=== PATIENT | male | born 1940 | race Hispanic/Latino ===

== ENCOUNTER 2018-01-19 16:22 | Emergency (ER) | payer OTHER, MEDICARE, BC ==
[~2018-01-19] VITALS: Ht 175.3 cm; Wt 92.5 kg
[~2018-01-19 16:22] MED LIST: ASPIRIN PO; ATORVASTATIN CA40 MG PO; FEOSOL325 MG PO; GLIMEPIRIDE2 MG PO; GLIMEPIRIDE4 MG PO; LEVAQUIN500 MG PO; METFORMIN HCL500 MG PO; SULFAMETHOXAZO1 EAC1 PO; TYLENOL WITH C1 EACH PO; Z.0.ATENOLOL25 MG PO; Z.0.LIPITOR20 MG; Z.0.PLAVIX75 MG PO; Z.1.METFORMIN HCL100 PO
--- OUTSIDE RECORDS SUMMARY | 2018-01-19 16:26 | XMS REPORT | Clinical Summary ---
Author Author [facility] Organization [facility] Address Unknown Phone Unavailable Care Team Providers [facility] Clinical Marketer Name Role Phone Asked, Given PCP Unavailable Allergies No Known Allergies Current Medications Prescription Sig. Disp. Refills Start End Date Status Date metFORMIN (GLUCOPHAGE) Take 500 mg by mouth 2 Active 500 MG tablet (two) times a day with meals. atorvastatin (LIPITOR) 40 Take 40 mg by mouth Active MG tablet nightly. atenolol (TENORMIN) 25 MG Take 25 mg by mouth Active tablet nightly. clopidogrel (PLAVIX) 75 Take 75 mg by mouth Active mg tablet daily. Last dose 07/20 per MD. aspirin (ECOTRIN) 81 MG Take 81 mg by mouth Active enteric coated tablet daily. Last dose 07/20/16 per MD glimepiride (AMARYL) 4 MG Take 4 mg by mouth Active tablet nightly. syringe with needle 3 mL 1 Syringe daily. 5 Syringe 0 04/15/20 Active 22 gauge x 1" syringe 17 nitrofurantoin Take 1 capsule (100 mg 30 capsule 0 04/12/20 (MACRODANTIN) 100 MG total) by mouth 3 (three) 17 17 capsule times a day for 10 days. cefepime (MAXIPIME) 1 Inject 1 g into the 5 g 0 04/15/20 04/20/20 gram injection shoulder, thigh, or 17 17 buttocks daily for 5 days. ciprofloxacin (CIPRO) 500 Take 1 tablet (500 mg 20 tablet 0 05/01/20 05/11/20 MG tablet total) by mouth 2 (two) 17 17 times a day for 10 days. nitrofurantoin, Take 1 capsule (100 mg 16 capsule 0 05/13/20 macrocrystal-monohydrate, total) by mouth 2 (two) 17 17 (MACROBID) 100 MG capsule times a day for 8 days. Hospital, Clinic, or Ordered Dose Route Frequency Start End Date Status Other Facility Date Administered Medication cefTRIAXone (ROCEPHIN) 1 g IM Once 04/16/20 04/16/20 Ended injection 1 gIndications: 17 17 Urinary tract infection, site unspecified cefTRIAXone (ROCEPHIN) 1 g IM Once 04/17/20 04/17/20 Ended injection 1 gIndications: 17 17 Urinary tract infection, site not specified cefTRIAXone (ROCEPHIN) 1 g IM Once 04/18/20 04/18/20 Ended injection 1 gIndications: 17 17 Urinary tract infection, site unspecified Active Problems Patient Care Coordination Note Oncology stage: Prostate : T2C, N0,Mo. Bladder:Tis, N0,M0 No known active problems Resolved Problems Problem Noted Date Resolved Date Prostate cancer 06/24/2017 06/24/2017 UTI (urinary tract infection) 05/08/2017 05/13/2017 Malignant neoplasm of overlapping sites of bladder 07/27/2016 06/24/2017 Encounters Date Type Specialty Care Team Description 01/01/2018 Office Visit Urology Josiah Hobbs Malignant neoplasm ralph Hooks MD overlapping sites of bladder (Primary Dx) 12/19/2017 Hospital Radiology Reynaldo Cabral MD Malignant neoplasm of Encounter urinary bladder, unspecified site 12/16/2017 Telephone Urology Linda Crystal MA Malignant neoplasm of urinary bladder, unspecified site (Primary Dx) 09/25/2017 Telephone Urology Josiah Hobbs MD 09/11/2017 Telephone Urology Josiah Hobbs MD 08/12/2017 Office Visit UrologJosiah Thomas MD overlapping sites of bladder (Primary Dx) 08/08/2017 Hospital Radiology Josiah Hobbs Malignant neoplasm of Encounter MD Neva urinary bladder, unspecified site 08/08/2017 Ancillary Urology Josiah Hobbs Malignant neoplasm of Orders MD Neva urinary bladder, unspecified site 08/07/2017 Telephone Urology Josiah Hobbs MD 08/05/2017 Telephone Urology Rosina Luo MA Malignant neoplasm of urinary bladder, unspecified site (Primary Dx) 05/27/2017 Clinical UrologJosiah Thomas Prostate cancer ( Primary Support NMD Genet Dx) 05/10/2017 Telephone Josiah Brunson MD 05/08/2017 Office Visit UrologJosiah Thomas Urinary tract infection MD eNva associated with cystostomy catheter, sequela (Primary Dx); Urinary tract infection associated with cystostomy catheter, subsequent encounter 05/06/2017 Telephone Josiah Brunson MD 05/01/2017 Telephone Urology Elma Butt MA 04/29/2017 Telephone UrologJosiah Thomas MD 04/23/2017 Telephone UrologJosiah Thomas Urinary tract infection, NMD Genet site unspecified (Primary Dx) 04/18/2017 Clinical Josiah Brunson Urinary tract infection, Support NMD Genet site unspecified (Primary Dx) 04/17/2017 Hospital Radiology Unknown, Phys Personal history of Encounter bladder cancer 04/17/2017 Clinical Josiah Brunson Urinary tract infection, Support MD Neva site not specified (Primary Dx) 04/17/2017 Ancillary Shruthiy Josiah Hobbs Personal history of Orders NMD Genet bladder cancer 04/16/2017 Lab Lab Josiah Hobbs MD 04/16/2017 Clinical Josiah Brunson Urinary tract infection, Support MD Neva site unspecified (Primary Dx) 04/16/2017 Telephone Josiah Brunson MD 04/15/2017 Telephone UrologJosiah Thomas MD 04/15/2017 Transcribe Access Josiah Hobbs MD 04/15/2017 Telephone Urology Elma Butt MA 04/12/2017 Telephone UrologElma Watson MA 04/08/2017 Orders Only Josiah Brunson MD 04/08/2017 Telephone Urology Rosina Luo MA 03/22/2017 Telephone UrologJosiah Thomas MD 03/21/2017 Telephone Urology Josiah Hobbs MD 03/21/2017 Telephone Urology Josiah Hobbs MD 03/19/2017 Office Visit Urology Josiah Hobbs Personal history of MD Neva bladder cancer (Primary Dx) after 01/18/2017 Immunizations Name Dates Previously Given Next Due FLUCELVAX QUAD PF (0.5mL 08/01/2016 syringe) Family History Medical History Relation Name Comments Diabetes Brother Diabetes Brother Cancer Mother aureora Diabetes Sister Relation Name Status Comments Brother Alive Brother Alive Father of heart attack Mother maya cancer of pancreas Sister Alive Social History Tobacco Use Types Packs/Day Years Used Date Former Smoker Cigarettes 1 30 Quit: 05/04/1986 Alcohol Use Drinks/Week oz/Week Comments No Sex Assigned at Date Recorded Not on file Last Filed Vital Signs Vital Sign Reading Time Taken Blood Pressure - - Pulse - - Temperature - - Respiratory Rate - - Oxygen Saturation - - Inhaled Oxygen - - Concentration Weight 92.5 kg (204 lb) 12/19/2017 3:40 PM [employer] Height 170.2 cm (5' 7") 12/19/2017 3:40 PM [employer] Body Mass Index 31.95 12/19/2017 3:40 PM [employer] Plan of Treatment Date Type Specialty Care Team Description 07/30/2018 Office Visit Urology Josiah Hobbs MD [address] [place] [address] [phone] Health Maintenance Due Date Last Done Comments ZOSTER VACCINE 2001 PNEUMOCOCCAL 2006 POLYSACCHARIDE VACCINE AGE 65 AND OVER PNEUMOCOCCAL-13 2006 INFLUENZA VACCINE 06/04/2017 08/01/2016 Implants Implanted Type Area Bander And Cellophaner Helper Machine Device Expiration Model / Identifier Date Serial / Lot Stent Uretl Divrsn [place] Rt 8.4fr Surgical N/A: N/A Freebase UROLOGICAL 06/04/2019 [id number] / 90cm Britany - [id number] Stents / Implanted: 07/27/2016 (Quantity not [id number] on file) Stent Uretl Divrsn [place] Lt 8.4fr Surgical N/A: N/A Freebase UROLOGICAL 01/18/2019 [id number] / 90cm Britany - [id number] Stents / Implanted: 07/27/2016 (Quantity not [id number] on file) Results * CT Abdomen Pelvis W Contrast (12/19/2017 4:53 PM) Only the most recent of 2 results within the time period is included. Specimen Performing Laboratory [facility] [address] [place] [address] Narrative EXAMINATION:CT ABDOMEN PELVIS W CONTRAST CLINICAL HISTORY:C67.9 Malignant neoplasm of bladderunspecified, Bladder Cancer TECHNIQUE: Multiple axial images of the abdomen and pelvis were obtained following intravenous administration of iodinated contrast. Sagittal and coronal computerized reformatted images were also obtained. Radiation dose reduction technique was utilized. COMPARISON:August 08, 2017 IMPRESSION: Abdomen: 1. Liver, spleen, pancreas, adrenals, and kidneys do not demonstrate any masses. 2.Gallbladder is absent. 3.Aorta is atherosclerotic. There is no aneurysm. 4.There is no retroperitoneal adenopathy or ascites. 5.There is an ostomy site in the right mid abdomen. There is no intestinal obstruction. 6.Previously suspected nodule in left lower lobe of the lung is not clearly identified on the current study. Pelvis: 1. There are postoperative changes related to radical cystectomy. 2.There is no pelvic mass, adenopathy, or fluid collection. [facility]-[id number] Procedure Note Interface, Radiology Results Incoming - 12/19/2017 5:06 PM [employer] EXAMINATION: CT ABDOMEN PELVIS W CONTRAST CLINICAL HISTORY: C67.9 Malignant neoplasm of bladder unspecified, Bladder Cancer TECHNIQUE: Multiple axial images of the abdomen and pelvis were obtained following intravenous administration of iodinated contrast. Sagittal and coronal computerized reformatted images were also obtained. Radiation dose reduction technique was utilized. COMPARISON: August 08, 2017 IMPRESSION: Abdomen: 1. Liver, spleen, pancreas, adrenals, and kidneys do not demonstrate any masses. 2. Gallbladder is absent. 3. Aorta is atherosclerotic. There is no aneurysm. 4. There is no retroperitoneal adenopathy or ascites. 5. There is an ostomy site in the right mid abdomen. There is no intestinal obstruction. 6. Previously suspected nodule in left lower lobe of the lung is not clearly identified on the current study. Pelvis: 1. There are postoperative changes related to radical cystectomy. 2. There is no pelvic mass, adenopathy, or fluid collection. [id number] * Estimated GFR (12/19/2017 3:53 PM) Only the most recent of 2 results within the time period is included. Component Value Ref Range GFR Non Af Amer >90 mL/min/1.73 m2 GFR Af Amer >90 mL/min/1.73 m2 Comment: Chronic kidney disease: <60 mL/min/1.73m2 Kidney failure: <15 mL/min/1.73m2 The estimated GFR is calculated from the IDMS-traceable Modification of Diet in Renal Disease Equation. The accuracy of the calculation is poor when the creatinine is normal. Calculated values >90 mL/min/1.73m2 are not reported. This equation has not been validated in children (<18 years), women, the elderly (>70 years), or ethnic groups other than Caucasians and Americans. Specimen Performing Laboratory Plasma specimen [facility] DEPARTMENT OF PATHOLOGY AND GENOMIC MEDICINE [address] [place] [id number] * Creatinine level (12/19/2017 3:53 PM) Only the most recent of 2 results within the time period is included. Component Value Ref Range Creatinine 0.7Comment: Testing performed on the ISTAT 0.7 - 1.2 mg/dL instrument by Tech [id number] Specimen Performing Laboratory Plasma specimen [facility] DEPARTMENT OF PATHOLOGY AND GENOMIC MEDICINE [address] [place] [id number] * PSA, ultrasensitive (05/27/2017 3:59 PM) Component Value Ref Range PSA, ultrasensitive <0.006 0.000 - 4.000 ng/mL Comment: Lian ECLIA methodology. According to the [employer] [employer], Serum PSA should decrease and remain at undetectable levels after radical prostatectomy. The AUA defines biochemical recurrence as an initial PSA value 0.200 ng/mL or greater followed by a subsequent confirmatory PSA value 0.200 ng/mL or greater. Values obtained with different assay methods or kits cannot be used interchangeably. Results cannot be interpreted as absolute evidence of the presence or absence of malignant disease. Specimen Performing Laboratory Blood [facility] Narrative Performed at:[id number] Banquet Bartender: Nathan Villarreal MD, Phone:[phone] * Urine culture (05/09/2017 1:20 PM) Only the most recent of 4 results within the time period is included. Component Value Ref Range Urine culture Escherichia coli Identified by an automated biochemical system. (A)Comment: 50,000-100,000 colony forming units per mL Specimen Performing Laboratory Urine [facility] Narrative Performed at:[id number] Banquet Bartender: Nathan Villarreal MD, Phone:[phone] Organism Antibiotic Method Susceptibility Escherichia coli Amoxicillin/Clavulanate S: Susceptible Escherichia coli Ampicillin R: Resistant Escherichia coli Cefepime S: Susceptible Escherichia coli Ceftriaxone S: Susceptible Escherichia coli Cefuroxime I: Intermediate Escherichia coli Cephalothin I: Intermediate Escherichia coli Ciprofloxacin R: Resistant Escherichia coli Ertapenem S: Susceptible Escherichia coli Gentamicin S: Susceptible Escherichia coli Imipenem S: Susceptible Escherichia coli Levofloxacin R: Resistant Escherichia coli Nitrofurantoin S: Susceptible Escherichia coli Piperacillin R: Resistant Escherichia coli Tetracycline R: Resistant Escherichia coli Tobramycin S: Susceptible Escherichia coli Trimethoprim/Sulfamethoxa R: Resistant zole Comment: Performed at: [address] [id number] Banquet Bartender: Nathan Villarreal MD, Phone: [phone] * FL Cystogram Minimun 3 Views (04/17/2017 10:50 AM) Specimen Performing Laboratory [facility] [address] [place] [id number] Narrative EXAMINATION:FL CYSTOGRAM MINIMUM 3 VW CLINICAL HISTORY:Z85.51 Personal history of malignant neoplasm of bladder COMPARISON:None. TECHNIQUE: Cystogram was performed. Contrast was instilled into the bladder in a retrograde manner via Adair catheter. FLUOROSCOPIC TIME:0.7 minutes, 13 images IMPRESSION: Patient is status post cystectomy. Contrast was placed into neobladder in the right lower quadrant. No contrast extravasation is present There is reflux of contrast into the ureters bilaterally. There is no hydronephrosis present. The ureters are not dilated. [facility]-[id number] Procedure Note Interface, Radiology Results Incoming - 04/17/2017 3:58 PM CDT EXAMINATION: FL CYSTOGRAM MINIMUM 3 VW CLINICAL HISTORY: Z85.51 Personal history of malignant neoplasm of bladder COMPARISON: None. TECHNIQUE: Cystogram was performed. Contrast was instilled into the bladder in a retrograde manner via Adair catheter. FLUOROSCOPIC TIME: 0.7 minutes, 13 images IMPRESSION: Patient is status post cystectomy. Contrast was placed into neobladder in the right lower quadrant. No contrast extravasation is present There is reflux of contrast into the ureters bilaterally. There is no hydronephrosis present. The ureters are not dilated. [facility]-[id number] * Urinalysis screen and microscopy, with reflex to culture (04/16/2017 10:05 AM) Component Value Ref Range Specimen site Ileal conduit Color, UA Yellow Appearance, UA Clear Specific gravity, UA 1.013 1.001 - 1.035 pH, UA 6.0 5.0 - 8.5 Protein, UA 1+ (A) Negative Glucose, UA Negative Negative Ketones, UA Negative Negative Bilirubin, UA Negative Negative Blood, UA Small (A) Negative Nitrite, UA Negative Negative Urobilinogen, UA <2.0 <2.0 Leukocyte esterase, UA Large (A) Negative WBC, UA 22 (H) 0 - 1 /HPF RBC, UA 6 (H) 0 - 1 /HPF Bacteria, UA Moderate (A) None seen Yeast, UA None seen Yeast with pseudohyphae, None seen UA Hyaline casts, UA 5 /LPF Specimen Performing Laboratory Urine [facility] DEPARTMENT OF PATHOLOGY AND GENOMIC MEDICINE [address] [place] [address] * Gram stain (04/16/2017 10:05 AM) Component Value Ref Range Gram stain isolate Moderate WBC's Few Gram positive rods Comment: Specimen Information Specimen Source: Urine Specimen Site: See UA Specimen Performing Laboratory Urine [facility] DEPARTMENT OF PATHOLOGY AND GENOMIC MEDICINE [address] [place] [address] * Urine culture screen result (04/08/2017 5:01 PM) Component Value Ref Range Urine culture Escherichia coli Greater than 100,000 colony forming units per mL (A) Urine culture Klebsiella pneumoniae Greater than 100,000 colony forming units per mL (A) Specimen Performing Laboratory [facility] Narrative Performed at:[id number] Banquet Bartender: Nathan Villarreal MD, Phone:[phone] Organism Antibiotic Method Susceptibility Escherichia coli Amoxicillin/Clavulanate S: Susceptible Escherichia coli Ampicillin R: Resistant Escherichia coli Cefepime S: Susceptible Escherichia coli Ceftriaxone S: Susceptible Escherichia coli Cefuroxime R: Resistant Escherichia coli Cephalothin R: Resistant Escherichia coli Ciprofloxacin R: Resistant Escherichia coli Ertapenem S: Susceptible Escherichia coli Gentamicin S: Susceptible Escherichia coli Imipenem S: Susceptible Escherichia coli Levofloxacin R: Resistant Escherichia coli Nitrofurantoin I: Intermediate Escherichia coli Piperacillin R: Resistant Escherichia coli Tetracycline R: Resistant Escherichia coli Tobramycin S: Susceptible Escherichia coli Trimethoprim/Sulfamethoxa R: Resistant zole Comment: Performed at: [facility] [id number] Banquet Bartender: Nathan Villarreal MD, Phone: [phone] Klebsiella pneumoniae Amoxicillin/Clavulanate I: Intermediate Klebsiella pneumoniae Ampicillin R: Resistant Klebsiella pneumoniae Cefazolin R: Resistant Klebsiella pneumoniae Cefepime S: Susceptible Klebsiella pneumoniae Ceftriaxone R: Resistant Klebsiella pneumoniae Cefuroxime R: Resistant Klebsiella pneumoniae Cephalothin R: Resistant Klebsiella pneumoniae Ciprofloxacin I: Intermediate Klebsiella pneumoniae Ertapenem S: Susceptible Klebsiella pneumoniae Gentamicin R: Resistant Klebsiella pneumoniae Imipenem S: Susceptible Klebsiella pneumoniae Levofloxacin S: Susceptible Klebsiella pneumoniae Nitrofurantoin I: Intermediate Klebsiella pneumoniae Piperacillin R: Resistant Klebsiella pneumoniae Tetracycline R: Resistant Klebsiella pneumoniae Tobramycin I: Intermediate Klebsiella pneumoniae Trimethoprim/Sulfamethoxa R: Resistant zole Comment: Performed at: [facility] [id number] Banquet Bartender: Nathan Villarreal MD, Phone: [phone] * Urine Cytology (04/04/2017 3:18 PM) Component Value Ref Range Source CommentComment: URINE Diagnosis Comment Comment: Urine, voided, cytology: - Nondiagnostic specimen. - Insufficient cellularity for evaluation. Signed out by: CommentComment: Nathan Villarreal MD, Pathologist Performed by: CommentComment: Ashleigh Lane, Bookkeeper (ASCP) Gross description: Comment Comment: Received is 50 ml of yellow fluid from which one ThinPrep is made. /maria esther Microscopic description: CommentComment: Microscopic examination is performed. Specimen Performing Laboratory Urine [facility] Narrative Performed at: [id number] Banquet Bartender: Nathan Villarreal MD, Phone:[phone] Specimen Comment: No. of containers..01 Other (Miscellaneous) after 01/18/2017 Insurance Payer Benefit Subscriber ID Type Phone Address Plan / Group MEDICARE MEDICARE xxxxxxxxxx Medicare [place] PART A [place] B BCBS BCBS xxxxxxxxxxxx Indemnity PAR/TRAD PLAN Work: [address] [facility] [phone] Home:
[2018-01-19] MEDS ORDERED: ROBAXIN-750750 MG PO (17:37)
[2018-01-19] MEDS ORDERED: VALIUM5 MG PO (17:37)
[2018-01-19 18:57] VITALS: BP 136/68
== END 2018-01-19 17:45 | disposition home or self-care (01) ==
LOC: FSED 16:22
DX: M25.511 Pain in right shoulder (principal); M54.6 Pain in thoracic spine; V43.62XA Car passenger injured in collision with other type car in traffic accident, initial encounter; Y92.488 Other paved roadways as the place of occurrence of the external cause; I10 Essential (primary) hypertension; E11.9 Type 2 diabetes mellitus without complications; E78.5 Hyperlipidemia, unspecified
CPT/HCPCS: 99282

== ENCOUNTER 2019-05-14 18:19 | Observation (INO) | payer MEDICARE, BC ==
[~2019-05-14] VITALS: Ht 175.3 cm; Wt 95.8 kg
[~2019-05-14 18:19] MED LIST changes: +ROBAXIN-750750 MG PO; +VALIUM5 MG PO
--- OUTSIDE RECORDS SUMMARY | 2019-05-14 18:24 | XMS REPORT | Clinical Summary ---
Author Author [facility] Address Unknown Phone Unavailable Care Team Providers Care Tire Adjuster Name Role Phone Asked, None Given PCP Unavailable Allergies No Known Allergies Medications End Date Status Medication Sig Dispensed Refills Start Date Active metFORMIN (GLUCOPHAGE) Take 500 mg 0 500 MG tablet by mouth 2 (two) times a day with meals. Active atorvastatin (LIPITOR) 40 Take 40 mg by 0 MG tablet mouth nightly. Active atenolol (TENORMIN) 25 MG Take 25 mg by 0 tablet mouth nightly. Active clopidogrel (PLAVIX) 75 Take 75 mg by 0 mg tablet mouth daily. Last dose 07/20 per MD. Active aspirin (ECOTRIN) 81 MG Take 81 mg by 0 enteric coated tablet mouth daily. Last dose 07/20/16 per MD Active glimepiride (AMARYL) 4 MG Take 4 mg by 0 tablet mouth nightly. Active syringe with needle 3 mL 1 Syringe 5 Syringe 0 22 gauge x 1" syringe daily. 7 Active Problems Patient Care Coordination Note Oncology stage: Prostate : T2C, N0,Mo. Bladder:Tis, N0,M0 No known active problems Encounters Care Team Description Date Type Specialty Rosina Luo MA 03/18/2019 Telephone Urology Randi Kowalski MA 03/18/2019 Telephone Urology Josiah Hobbs MD Urinary tract infection without hematuria, site unspecified 03/11/2019 Hospital Radiology Encounter Josiah Hobbs MD Urinary tract infection associated with cystostomy catheter, sequela; Urinary tract infection without hematuria, site unspecified 03/11/2019 Hospital Radiology Encounter Josiah Hobbs MD Urinary tract infection associated with cystostomy catheter, sequela (Primary Dx); Urinary tract infection without hematuria, site unspecified 02/26/2019 Office Visit Urology Rosina Luo MA Cough (Primary Dx) 02/26/2019 Orders Only Urology Rosina Luo MA Urinary tract infection without hematuria, site unspecified (Primary Dx) 02/26/2019 Orders Only Urology Josiah Hobbs MD 02/09/2019 Telephone Urology Randi Kowalski MA 12/01/2018 Telephone Urology Josiah Hobbs MD Malignant neoplasm of overlapping sites of bladder (HCC) (Primary Dx) 11/28/2018 Office Visit Urology Josiah Hobbs MD 11/26/2018 Telephone Urology Rosina Luo MA 10/10/2018 Telephone Urology Venita Hope MA 08/26/2018 Telephone Urology Josiah Hobbs MD Bladder carcinoma (HCC) (Primary Dx) 08/20/2018 Office Visit Urology Josiah Hobbs MD 08/14/2018 Telephone Urology Josiah Hobbs MD Malignant neoplasm of overlapping sites of bladder (HCC) 08/04/2018 Hospital Radiology Encounter Josiah Hobbs MD Malignant neoplasm of overlapping sites of bladder (HCC) 08/04/2018 Hospital Radiology Encounter Josiah Hobbs MD Malignant neoplasm of overlapping sites of bladder (Primary Dx) 08/01/2018 Office Visit Urology Josiah Hobbs MD 07/22/2018 Telephone Urology Josiah Hobbs MD 05/15/2018 Telephone Urology after 05/13/2018 Immunizations Name Dates Previously Given Next Due FLUCELVAX QUAD PF (0.5mL 08/01/2016 syringe) Family History Medical History Relation Name Comments Diabetes Brother Diabetes Brother Cancer Mother aureora Diabetes Sister Relation Name Status Comments Brother Alive Brother Alive Father of heart attack Mother aureora cancer of pancreas Sister Alive Social History Date Tobacco Use Types Packs/Day Years Used Quit: 05/04/1986 Former Smoker Cigarettes 1 30 Smokeless Tobacco: Former User Alcohol Use Drinks/Week oz/Week Comments No Sex Assigned at Date Recorded Not on file Industry Job Start Date Occupation Not on file Not on file Not on file Travel End Travel History Travel Start No recent travel history available. Last Filed Vital Signs Time Taken Vital Sign Reading 02/26/2019 12:18 PM CDT Blood Pressure 127/55 02/26/2019 12:18 PM CDT Pulse 63 - Temperature - - Respiratory Rate - - Oxygen Saturation - - Inhaled Oxygen - Concentration 08/04/2018 1:44 PM CDT Weight 92.5 kg (204 lb) 08/04/2018 1:44 PM CDT Height 170.2 cm (5' 7") 08/04/2018 1:44 PM CDT Body Mass Index 31.95 Plan of Treatment Health Maintenance Due Date Last Done Comments SHINGLES VACCINES (#1) 1991 65+ PNEUMOCOCCAL VACCINE 2006 (1 of 2 - PCV13) INFLUENZA VACCINE 06/04/2019 08/01/2016 Implants Device Identifier Shelf Expiration Date Model / Serial / Lot Implanted Type Area Manufactur er 06/04/2019 [id number] / / [id number] Stent Uretl Divrsn Water Purifier Operator Rt 8.4fr Surgical N/A: N/A COOK 90cm Britany - [id number] Stents UROLOGICAL Implanted: 07/27/2016 (Quantity not on file) 01/18/2019 [id number] / / [id number] Stent [employer]retl Divrsn Water Purifier Operator Lt 8.4fr Surgical N/A: N/A COOK 90cm Britany - [id number] Stents UROLOGICAL Implanted: 07/27/2016 (Quantity not on file) Procedures Comments Procedure Name Priority Date/Time Associated Diagnosis CT RENAL STONE PROTOCOL Routine 03/11/2019 Urinary tract infection 1:59 PM CDT without hematuria, site unspecified XR CHEST 2 VW Routine 03/11/2019 Urinary tract infection 1:28 PM CDT associated with cystostomy catheter, sequela Urinary tract infection without hematuria, site unspecified POC URINALYSIS DIPSTICK Routine 02/26/2019 Urinary tract infection 12:27 PM CDT associated with cystostomy catheter, sequela URINE CULTURE Routine 02/26/2019 Urinary tract infection 3:16 AM CDT associated with cystostomy catheter, sequela CT ABDOMEN PELVIS W WO Routine 08/04/2018 Malignant neoplasm of CONTRAST 3:33 PM CDT overlapping sites of bladder (HCC) XR CHEST 2 VW Routine 08/04/2018 Malignant neoplasm of 1:35 PM CDT overlapping sites of bladder (HCC) PROSTATE SPECIFIC ANTIGEN Routine 08/01/2018 Malignant neoplasm of 1:56 PM CDT overlapping sites of bladder COMPREHENSIVE METABOLIC Routine 08/01/2018 Malignant neoplasm of PANEL 1:56 PM CDT overlapping sites of bladder CBC WITH PLATELET AND Routine 08/01/2018 Malignant neoplasm of DIFFERENTIAL 1:56 PM CDT overlapping sites of bladder POC URINALYSIS DIPSTICK Routine 08/01/2018 Malignant neoplasm of 11:37 AM CDT overlapping sites of bladder after 05/13/2018 Results * CT Renal Stone Protocol (03/11/2019 1:59 PM CDT) Specimen Narrative Performed At EXAMINATION:CT RENAL STONE PROTOCOL [facility] CLINICAL HISTORY:N39.0 Urinary tract infectionsite not specified, UTI COMPARISON:08/04/2018 TECHNIQUE:CT of the abdomen and pelvis without intravenous contrast. Absence of intravenous contrast decreases sensitivity for detection of focal lesions and vascular pathology. CT imaging was performed with iterative reconstruction techniques and/or automated exposure control to reduce radiation dose. FINDINGS: LOWER THORAX:Mild bibasilar atelectasis. Mitral annular calcifications. Scattered coronary calcifications. Mild cardiac enlargement HEPATOBILIARY:Cholecystectomy. There are some dropped clips and probably stones along the posterior right lobe the liver. No focal hepatic lesion or biliary dilation. SPLEEN:No splenomegaly. PANCREAS:No focal masses or ductal dilation. ADRENALS:No adrenal nodules. KIDNEYS:Punctate nonobstructing calyceal stone lower pole right kidney. Unenhanced kidneys are otherwise unremarkable. There is no hydronephrosis. GI TRACT:Absence of oral contrast decreases sensitivity for detection of bowel pathology. Prominent fecal material is present in portions of the colon. There are scattered colonic diverticula. There is some postsurgical changes in the small bowel in the right lower quadrant. No obstruction. Appendix is presumed absent. PERITONEUM/RETROPERITONEUM:Advanced atherosclerotic disease in the abdominal aorta which is nonaneurysmal. There is no abdominal adenopathy, ascites or free air. PELVIC ORGANS/BLADDER:Patient is status post cystoprostatectomy. There is an ileal conduit and urostomy in the right lower quadrant which have a normal unenhanced appearance. There is no pelvic sidewall adenopathy. There are surgical clips along each side wall. There is no pelvic fluid. BONES AND SOFT TISSUES:Degenerative changes in the hips and spine. IMPRESSION: 1.Patient is status post cystoprostatectomy with right lower quadrant ileocolic conduit and urostomy. These have a normal unenhanced appearance. 2.Punctate calyceal stone lower pole right kidney. No hydronephrosis. 3.Additional findings as above. [id number] Procedure Note Hm Interface, Radiology Results Incoming - 03/11/2019 2:53 PM CDT EXAMINATION: CT RENAL STONE PROTOCOL CLINICAL HISTORY: N39.0 Urinary tract infection site not specified, UTI COMPARISON: 08/04/2018 TECHNIQUE: CT of the abdomen and pelvis without intravenous contrast. Absence of intravenous contrast decreases sensitivity for detection of focal lesions and vascular pathology. CT imaging was performed with iterative reconstruction techniques and/or automated exposure control to reduce radiation dose. FINDINGS: LOWER THORAX: Mild bibasilar atelectasis. Mitral annular calcifications. Scattered coronary calcifications. Mild cardiac enlargement HEPATOBILIARY: Cholecystectomy. There are some dropped clips and probably stones along the posterior right lobe the liver. No focal hepatic lesion or biliary dilation. SPLEEN: No splenomegaly. PANCREAS: No focal masses or ductal dilation. ADRENALS: No adrenal nodules. KIDNEYS: Punctate nonobstructing calyceal stone lower pole right kidney. Unenhanced kidneys are otherwise unremarkable. There is no hydronephrosis. GI TRACT: Absence of oral contrast decreases sensitivity for detection of bowel pathology. Prominent fecal material is present in portions of the colon. There are scattered colonic diverticula. There is some postsurgical changes in the small bowel in the right lower quadrant. No obstruction. Appendix is presumed absent. PERITONEUM/RETROPERITONEUM: Advanced atherosclerotic disease in the abdominal aorta which is nonaneurysmal. There is no abdominal adenopathy, ascites or free air. PELVIC ORGANS/BLADDER: Patient is status post cystoprostatectomy. There is an ileal conduit and urostomy in the right lower quadrant which have a normal unenhanced appearance. There is no pelvic sidewall adenopathy. There are surgical clips along each side wall. There is no pelvic fluid. BONES AND SOFT TISSUES: Degenerative changes in the hips and spine. IMPRESSION: 1. Patient is status post cystoprostatectomy with right lower quadrant ileocolic conduit and urostomy. These have a normal unenhanced appearance. 2. Punctate calyceal stone lower pole right kidney. No hydronephrosis. 3. Additional findings as above. [id number] Performing Organization Address [facility] Phone Number [facility] [address] [place] [address] * XR Chest 2 Vw (03/11/2019 1:28 PM CDT) Only the most recent of 2 results within the time period is included. Specimen Narrative Performed At EXAMINATION:XR CHEST 2 VW [facility] CLINICAL HISTORY:T83.510S Infection and inflammatory reaction due to cystostomy cathetersequela, N39.0 Urinary tract infectionsite not specified, bladder Ca COMPARISON:Chest x-ray 08/04/2018 IMPRESSION: Frontal and lateral views reveal a stable cardiomediastinal silhouette. Lungs are clear. Pleural margins are sharp. The remainder of the examination is unchanged. [id number] Procedure Note Hm Interface, Radiology Results Incoming - 03/11/2019 1:48 PM CDT EXAMINATION: XR CHEST 2 VW CLINICAL HISTORY: T83.510S Infection and inflammatory reaction due to cystostomy catheter sequela, N39.0 Urinary tract infection site not specified, bladder Ca COMPARISON: Chest x-ray 08/04/2018 IMPRESSION: Frontal and lateral views reveal a stable cardiomediastinal silhouette. Lungs are clear. Pleural margins are sharp. The remainder of the examination is unchanged. [id number] Performing Organization Address [facility] Phone Number [facility] [address] [place] [address] * POC urinalysis dipstick (02/26/2019 12:27 PM CDT) Only the most recent of 2 results within the time period is included. Color urine, Yellow POC Clarity urine, Cloudy POC Glucose urine, Negative Negative POC Bilirubin Negative Negative urine, POC Ketones urine, Negative Negative POC Specific 1.020 1.005 - 1.030 gravity urine, POC Blood urine, Moderate (A) Negative POC pH urine, POC 6.5 5.0, 5.5, 6.0, 6.5, 7.0, 7.5, 8.0, 8.5 Protein urine, Negative Negative POC Urobilinogen <2.0 <2.0 urine, POC Nitrite urine, Positive (A) Negative POC Leukocyte Trace (A) Negative esterase urine, POC Specimen Urine * Urine culture (02/26/2019 3:16 AM CDT) Urine culture Greater than 2 organisms [facility] recovered, none predominant. Please submit another sample if clinically indicated. Greater than 100,000 colony forming units per mL Specimen Urine Narrative Performed At Performed at: - [facility] [address] [place], [id number] [employer] Plant Manager: Nathan Villarreal MD, Phone:[phone] Performing Organization Address City/State/Zipcode Phone Number [facility] * CT Abdomen Pelvis W Wo Contrast (08/04/2018 3:33 PM CDT) Specimen Narrative Performed At EXAMINATION:CT ABDOMEN PELVIS W WO CONTRAST [facility] CLINICAL HISTORY:C67.8 Malignant neoplasm of overlapping sites of bladder, F U bladder cancer, Bladder cancer F U TECHNIQUE:Noncontrast images of the abdomen were obtained. Subsequently, axial images of the abdomen and pelvis were obtained following intravenous administration of iodinated contrast. Sagittal and coronal computerized reformatted images were also obtained. All CT images were acquired using radiation dose lowering technique with automated exposure control and / or iterative reconstruction. COMPARISON:CT abdomen and pelvis, 12/19/2017 IMPRESSION: ABDOMEN: 1. Precontrast images demonstrate no calculi within either kidney or visualized portions of either ureter. 2.Mosaic attenuation pattern in the lung bases likely mild interstitial edema. Coexistent cardiomegaly. Coronary artery calcifications. 3.Mild diffuse fatty liver.. No focal hepatic lesion identified. 4.Bile ducts, pancreas, spleen, adrenal glands demonstrate nothing unusual. 5.Retroaortic left renal vein anatomic variant. Atherosclerotic plaque in the abdominal aorta without AAA. Kidneys unremarkable. PELVIS: 1. No free fluid or lymphadenopathy identified within the abdomen or pelvis. Pelvic lymph node dissection clips. 2.Status post cystoprostatectomy with a right lower quadrant ileal urinary conduit. No hydronephrosis on either side. 3.Bowel loop show no evidence of obstruction or acute inflammation. Parastomal hernia containing fat only. 4.DJD in the spine and hips. Visualized bones show no suspicious lesion. SUMMARY: No suspicious finding identified. No evidence of residual or recurrent disease. [facility]-[id number] Procedure Note Interface, Radiology Results Incoming - 08/04/2018 4:01 PM CDT EXAMINATION: CT ABDOMEN PELVIS W WO CONTRAST CLINICAL HISTORY: C67.8 Malignant neoplasm of overlapping sites of bladder, F U bladder cancer, Bladder cancer F U TECHNIQUE: Noncontrast images of the abdomen were obtained. Subsequently, axial images of the abdomen and pelvis were obtained following intravenous administration of iodinated contrast. Sagittal and coronal computerized reformatted images were also obtained. All CT images were acquired using radiation dose lowering technique with automated exposure control and / or iterative reconstruction. COMPARISON: CT abdomen and pelvis, 12/19/2017 IMPRESSION: ABDOMEN: 1. Precontrast images demonstrate no calculi within either kidney or visualized portions of either ureter. 2. Mosaic attenuation pattern in the lung bases likely mild interstitial edema. Coexistent cardiomegaly. Coronary artery calcifications. 3. Mild diffuse fatty liver.. No focal hepatic lesion identified. 4. Bile ducts, pancreas, spleen, adrenal glands demonstrate nothing unusual. 5. Retroaortic left renal vein anatomic variant. Atherosclerotic plaque in the abdominal aorta without AAA. Kidneys unremarkable. PELVIS: 1. No free fluid or lymphadenopathy identified within the abdomen or pelvis. Pelvic lymph node dissection clips. 2. Status post cystoprostatectomy with a right lower quadrant ileal urinary conduit. No hydronephrosis on either side. 3. Bowel loop show no evidence of obstruction or acute inflammation. Parastomal hernia containing fat only. 4. DJD in the spine and hips. Visualized bones show no suspicious lesion. SUMMARY: No suspicious finding identified. No evidence of residual or recurrent disease. [facility]-[id number] Performing Organization Address City/State/Zipcode Phone Number [facility] [address] [place] [address] * CBC with platelet and differential (08/01/2018 1:56 PM CDT) WBC 6.3 3.4 - 10.8 x10E3/uL [facility] RBC 4.20 4.14 - 5.80 x10E6/uL [facility] HGB 12.1 (L) 13.0 - 17.7 g/dL [facility] HCT 37.0 (L) 37.5 - 51.0 % [facility] MCV 88 79 - 97 fL [facility] MCH 28.8 26.6 - 33.0 pg [facility] MCHC 32.7 31.5 - 35.7 g/dL [facility] RDW 14.7 12.3 - 15.4 % [facility] Platelet count 210 150 - 379 x10E3/uL [facility] Neutrophils 69 Not Estab. % [facility] Lymphocytes 18 Not Estab. % [facility] Monocytes 9 Not Estab. % [facility] Eosinophils 3 Not Estab. % [facility] Basophils 1 Not Estab. % [facility] Neutrophils, 4.4 1.4 - 7.0 x10E3/uL [facility] absolute Lymphocytes, 1.1 0.7 - 3.1 x10E3/uL [facility] absolute Monocytes, 0.6 0.1 - 0.9 x10E3/uL [facility] absolute Eosinophils, 0.2 0.0 - 0.4 x10E3/uL [facility] absolute Basophils, 0.0 0.0 - 0.2 x10E3/uL [facility] absolute Immature 0 Not Estab. % [facility] granulocytes Immature grans 0.0 0.0 - 0.1 x10E3/uL [facility] (abs) Specimen Blood Narrative Performed At Performed at:[address] [place], [place] [id number] [employer] Manager: Nathan Villarreal MD, Phone:[phone] Performing Organization Address [facility] Phone Number [facility] * Prostate specific antigen (08/01/2018 1:56 PM CDT) PSA <0.1 0.0 - 4.0 ng/mL [facility] Comment: Lian ECLIA methodology. According to the [place] [employer], Serum PSA should decrease and remain at undetectable levels after radical prostatectomy. The AUA defines biochemical recurrence as an initial PSA value 0.2 ng/mL or greater followed by a subsequent confirmatory PSA value 0.2 ng/mL or greater. Values obtained with different assay methods or kits cannot be used interchangeably. Results cannot be interpreted as absolute evidence of the presence or absence of malignant disease. Specimen Blood Narrative Performed At Performed at:[address] [place] [address] [id number] [employer] Manager: Nathan Villarreal MD, Phone:[phone] Performing Organization Address [facility] Phone Number [facility] * Comprehensive metabolic panel (08/01/2018 1:56 PM CDT) Glucose 122 (H) 65 - 99 mg/dL [facility] BUN, whole 21 8 - 27 mg/dL [facility] blood Creatinine 0.80 0.76 - 1.27 mg/dL [facility] EGFR Non-Afr. 87 >59 mL/min/1.73 [facility] [place] EGFR 100 >59 mL/min/1.73 [facility] [place] BUN/creatinine 26 (H) 10 - 24 [facility] ratio Sodium 142 134 - 144 mmol/L [facility] Potassium 4.7 3.5 - 5.2 mmol/L [facility] Chloride 99 96 - 106 mmol/L [facility] CO2 23 20 - 29 mmol/L [facility] Calcium 9.3 8.6 - 10.2 mg/dL [facility] Protein 7.2 6.0 - 8.5 g/dL [facility] Albumin, S 4.7 3.5 - 4.8 g/dL [facility] Globulin, total 2.5 1.5 - 4.5 g/dL [facility] Albumin/globuli 1.9 1.2 - 2.2 [facility] n ratio Total bilirubin 0.6 0.0 - 1.2 mg/dL [facility] Alkaline 71 39 - 117 IU/L [facility] phosphatase AST 17 0 - 40 IU/L [facility] ALT 20 0 - 44 IU/L [facility] Specimen Blood Narrative Performed At Performed at:01 - [facility] [place] [facility] [address] [place], [id number] [employer] Manager: Nathan Villarreal MD, Phone:[phone] Performing Organization Address City/State/Zipcode Phone Number [facility] after 05/13/2018 Insurance Type Payer Benefit Subscriber ID Effective Phone Address Plan / Dates Group Medicare MEDICARE MEDICARE xxxxxxxxxxx 2006- STOCK, PART A AND Present [place] Indemnity BCBS BCBS xxxxxxxxxxxx 2015-P PAR/TRAD resent PLAN Advance Directives Patient has advance care planning documents on file. For more information, estevan e contact: Vic Gonzalez [address] [place] [address]
--- OUTSIDE RECORDS SUMMARY | 2019-05-14 18:25 | XMS REPORT ---
Author [facility] Address Unknown Phone Unavailable Care Team Providers Care Time Study Statistician Name Role Phone Unavailable Unavailable Payers Payer Name Policy Type Policy Number Effective Date Expiration Date Problems This patient has no known problems. Allergies, Adverse Reactions, Alerts Allergy Name Allergy Type Status Severity Reaction(s) Onset Date Inactive Date Treating Clinician Comments No Known Allergies DA Active U 2013-06-06 00:00:00 Medications This patient has no known medications. Results Test Description Test Time Test Comments Text Results Atomic Results Result Comments - XR FINGER(S) 2+V LT 2019-03-23 17:15:00 [place]: O St: REG Name: YIFAN LAI [facility] : 1940 Age/S: 78/M [address] [facility] Unit #: [id number] Loc: [place] [address] Phys: Graciela Brito MD Acct: [id number] Dis Date: Status: REG CLI PHONE #: [phone] Exam Date: 03/23/2019 3777 FAX #: [phone] Reason: Z91.81 EXAMS: CPT CODE: [id number] XR FINGER(S) 2+[place] [address] TECHNIQUE - XR FINGER(S) 2+V LT . COMPARISON: None provided. HISTORY: 78 years Male Z91.81 FINDINGS: Bones: No acute fracture. No dislocation. No suspicious bone lesion. Joints: Moderate osteophytes. Moderate joint space reduction. No subchondral bone lesions. No bony erosions. Soft tissues: No significant abnormalities. Other: None. IMPRESSION: No acute fracture. Moderate osteoarthritic changes. at 2493 Reported and signed by: Corwin Hawk M.D. CC: Technologist: RT Pao(Zak) Trnscrd Date/Time/By: 03/23/2019 ([id number]) : By: Juan Orig Print D/T: S: 03/23/2019 (3392) PAGE 1 Signed Report
--- NOTE | 2019-05-14 19:16 | Diagnostic Imaging Report ---
EXAMINATION: Chest PA and lateral views INDICATION: Pain. COMPARISON: None FINDINGS: TUBES and LINES: None. LUNGS: Mild perihilar, peribronchial thickening. Bibasilar subsegmental atelectasis. There is no evidence of pneumonia or pulmonary edema. PLEURA: No pleural effusion or pneumothorax. HEART AND MEDIASTINUM: The cardiomediastinal silhouette is unremarkable. BONES AND SOFT TISSUES: There are degenerative changes in the thoracic spine. Orthopedic screw projected on the left humeral head. Soft tissues are unremarkable. UPPER ABDOMEN: No free air under the diaphragm. IMPRESSION: No acute thoracic abnormality. Signed by: Dr. Nico Phillips M.D. on 05/14/2019 7:12 PM
--- NOTE | 2019-05-14 19:24 | NUR ---
Report to ZEESHAN Fischer
--- NOTE | 2019-05-14 20:19 | Diagnostic Imaging Report ---
Examination: CT head without contrast Clinical Indication: Left arm and face numbness. . Technique: Transaxial noncontrast images from the skull base through the vertex were obtained. Sagittal and coronal reformatted images were done. Dose modulation, iterative reconstruction, and/or weight based adjustment of the mA/kV was utilized to reduce the radiation dose to as low as reasonably achievable. Comparison: None. Findings: Scalp: No abnormalities. Bones: Intact. No fractures. No blastic or lytic lesions. Brain sulci: Mild volume loss for patient's age. Ventricles: No hydrocephalus. Extra-axial space: No abnormalities. Parenchyma: There are confluent areas of low-attenuation within subcortical and periventricular white matter, nonspecific, but could represent microvascular ischemic disease. A chronic lacunar infarct is demonstrated in the right thalamus. No masses, hemorrhage, or acute or chronic cortical based vascular insults. Suprasellar region: No abnormalities. Craniocervical junction: The foramen magnum is patent. No Chiari one malformation. Incidental findings: Atherosclerotic calcification of the cavernous and supraclinoid internal carotid arteries. Impression: 1. No acute intracranial finding. 2. Mild chronic microvascular ischemic change and mild volume loss. Chronic lacunar right thalamic infarct. Signed by: Dr. Maribel Edmond M.D. on 05/14/2019 8:16 PM
[2019-05-14] MEDS ORDERED: ASPIRIN 81 MG CHEW TAB PO ONE (21:15)
[2019-05-14] MEDS ORDERED: DEXTROSE 50% SYRINGE 50 ML IV PRN ×2 (21:15)
[2019-05-14] MEDS ORDERED: NITROGLYCERIN 0.4 MG SUBL SL PRN (21:15)
[2019-05-14] MEDS ORDERED: MORPHINE SULFATE 2 MG/ML SYR 1ML IV PRN (21:15)
[2019-05-14] MEDS ORDERED: ONDANSETRON HCL INJ 2MG/ML 2ML 2 MG/ML VIAL IV PRN (21:15)
--- OUTSIDE RECORDS SUMMARY | 2019-05-14 21:32 | XMS REPORT | Clinical Summary ---
Author Author [facility] Organization [facility] Address Unknown Phone Unavailable Care Team Providers Care Retail Salesman Name Role Phone Asked, None Given PCP [...] Lot Implanted Type Area Manufactur er 06/04/2019 [id number] / / [id number] Stent Uretl Divrsn Java Flex Developer Rt 8.4fr Surgical N/A: N/A COOK 90cm Britany - [id number] Stents UROLOGICAL Implanted: 07/27/2016 (Quantity not on file) 01/18/2019 [id number] / / [id number] Stent Uretl Divrsn Java Flex Developer Lt 8.4fr Surgical N/A: N/A COOK 90cm Britany - [id number] Stents UROLOGICAL Implanted: 07/27/2016 (Quantity not on [...] kidney. No hydronephrosis. 3.Additional findings as above. [id number] Procedure Note Hm Interface, Radiology Results Incoming [...] No hydronephrosis. 3. Additional findings as above. [id number] Performing Organization Address [facility] Phone Number [facility] [address] [place] [address] * XR Chest 2 Vw (03/11/2019 1:28 [...] The remainder of the examination is unchanged. [facility]-[id number] Procedure Note Hm Interface, Radiology Results Incoming [...] The remainder of the examination is unchanged. [facility]-[id number] Performing Organization Address [facility] Phone Number [facility] [address] [place] [address] * POC urinalysis dipstick (02/26/2019 12:27 PM [...] Urine Narrative Performed At Performed at: - [facility] [address], [id number] [place] Paramedic: Nathan Villarreal MD, Phone:[phone] Performing Organization Address City/State/Zipcode Phone Number [facility] [...] No evidence of residual or recurrent disease. [facility]-[id number] Procedure Note Interface, Radiology Results Incoming - [...] No evidence of residual or recurrent disease. [facility]-[id number] Performing Organization Address City/State/Zipcode Phone Number [facility] [address] [place] [address] * CBC with platelet and differential (08/01/2018 [...] (abs) Specimen Blood Narrative Performed At Performed at:[address] [place], [place] [id number] Em[place] Paramedic: Nathan Villarreal MD, Phone:[phone] Performing Organization Address [facility] Phone Number [facility] * Prostate specific antigen (08/01/2018 1:56 PM CDT) PSA <0.1 0.0 - 4.0 ng/mL [facility] Comment: Lian ECLIA methodology. According to the [employer], Serum PSA should decrease and [...] disease. Specimen Blood Narrative Performed At Performed at:[address] [place] [address] [id number] [place] Paramedic: Nathan Villarreal MD, Phone:[phone] Performing Organization Address [facility] Phone Number [facility] * Comprehensive metabolic panel (08/01/2018 1:56 PM CDT) Glucose 122 (H) 65 - 99 mg/dL [facility] BUN, whole 21 8 - 27 mg/dL [facility] blood Creatinine 0.80 0.76 - 1.27 mg/dL [facility] EGFR Non-Afr. 87 >59 mL/min/1.73 [facility] Stateless EGFR 100 >59 mL/min/1.73 [facility] Stateless BUN/creatinine 26 (H) 10 - 24 [facility] [...] Narrative Performed At Performed at:01 - [facility] [address], [id number] [place] Paramedic: Nathan Villarreal MD, Phone:[phone] Performing Organization Address City/State/Zipcode Phone Number [facility] after 05/13/2018 Insurance Type Payer Benefit Subscriber ID Effective Phone Address Plan / Dates Group Medicare MEDICARE MEDICARE xxxxxxxxxxx 2006- STOCK, PART A AND Present [place] Indemnity BCBS BCBS xxxxxxxxxxxx 2015-P PAR/TRAD resent PLAN Advance Directives Patient has advance care planning documents on file. For more information, estevan e contact: Vic Gonzalez [address] [place] [address]
[2019-05-14] MEDS ORDERED: MORPHINE SULFATE INJ 4 MG/ML INJ 1ML IV PRN (21:45)
[2019-05-14 22:00] VITALS: BP 158/72
--- NOTE | 2019-05-14 22:10 | NUR ---
Received patient from free standing ER, alert , family members at bedside. Oriented to room, call light within easy reach, advised to call for assistance anytime when needed. Right urostomy noted, drained 250 ml urine, bed alarm activated, will continue to monitor closely
[2019-05-14 22:35] VITALS: BP 158/72
--- NOTE | 2019-05-14 22:45 | NUR ---
spoke to Dr. Gao, aware of admission, with orders for ECHO and Carotid doppler in AM. Dr. Cantu was paged c/o US
[2019-05-14] MEDS: CEFTRIAXONE SOD 1 GM/NS 50 ML 50 ML IV SCH (23:20)
[2019-05-14] MEDS: FAMOTIDINE 20 MG TAB PO SCH (23:20)
[2019-05-15] VITALS (7 sets, daily range): BP systolic 124–154; BP diastolic 61–73
[2019-05-15 03:59] LABS: CREATINE KINASE MB 2.2 ng/mL (0-5.0)
[2019-05-15 04:15] LABS: CHOL/HDL RATIO 3.1 (3.9-4.7)
--- NOTE | 2019-05-15 06:40 | NUR ---
rounded with manufacturing supervisor 2nd shift nurse, patient aware of change and in no distress. call jason within reach, bed in lowest position and at bedside.
[2019-05-15] MEDS: INSULIN LISPRO 100 UNIT/1 ML 3ML VIAL SQ SCH ×4 (07:30→20:19)
[2019-05-15] MEDS: FAMOTIDINE 20 MG TAB PO SCH ×2 (08:25→20:18)
[2019-05-15] MEDS: ASPIRIN 81 MG ENTERIC COATED PO SCH (08:25)
[2019-05-15] MEDS: CLOPIDOGREL BISULFATE 75 MG TAB PO SCH (08:25)
[2019-05-15 12:15] LABS: CREATINE KINASE MB 2.1 ng/mL (0-5.0)
--- NOTE | 2019-05-15 15:25 | Consultation ---
DATE OF CONSULTATION: 05/15/2019 Cardiac Consultation REASON FOR CONSULTATION: TIA. HISTORY: A 78-year-old gentleman, who is very well known to me. He does have coronary artery disease status post PCI in 2009 with totally occluded right coronary artery. His latest cardiac catheterization in October 2012 showed good collaterals from the left system to the RCA with 50% LAD disease. He is followed medically. 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 He had six rounds of BCG treatment as well as repeated biopsy and urostomy tube placement. Cardiac-thao, he is doing well and he is relatively active. The patient, by reviewing his records, in the past few years back he got TIA. The patient on appropriate medical therapy. The patient came to this institution because he started complaining of slurred speech, weakness of the left arm and left dropping of the left face. This improved today and he is feeling well. Also, he complained of neck pain and left arm pain. His initial cardiac enzymes were normal. His CT head showed the presence of old lacunar and right thalamic infarction. The patient is feeling better today, his speech is better and he does not have any symptoms. His EKG showing anterolateral T-wave changes. The patient today doing well. HOME MEDICATIONS: Include aspirin 81 mg a day, Plavix 75 mg a day, atenolol 25 mg a day, Lipitor 40 mg a day, metformin 500 mg three times a day, and glimepiride 4 mg a day. ALLERGIES: NONE. PAST MEDICAL HISTORY: 1. Coronary artery disease, PCI in 2009 and cardiac catheterization 2011 showing a totally occluded right coronary artery with good collateral, 50% LAD disease. 2. Bladder cancer status post BCG and interferon treatment and urostomy placement. 3. Hypertension. 4. Hypercholesterolemia. 5. Cholecystectomy in 2000 complicated by pulmonary embolism. 6. Diabetes mellitus. 7. Prostate problem. 8. Varicose veins. 9. History of H pylori. 10. Kidney stone. 11. History of TIA a few years back with right thalamic infarction. 12. Right and left shoulder surgery. 13. Left lower leg vein stripping. 14. Left rotator cuff surgery with redo. 15. Appendectomy. SOCIAL HISTORY: He stopped smoking many years ago. 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 He is non-alcohol drinker. He is . FAMILY HISTORY: Father of old age at age 80. Mother of complication of pancreatic cancer. Eleven brothers, three sisters, several with diabetes mellitus, CAD, etc. The patient does have three healthy children, one son and two daughters. REVIEW OF SYSTEMS: GENERAL: No fever, no chills. HEENT: No vision problem. No hearing problem. CARDIAC AND PULMONARY: As per acute illness. Basically, stable shortness of breath on exertion. GI: No hematemesis. No melena. : Urostomy and the patient having urostomy tube. MUSCULOSKELETAL: No aches or pain. PERIPHERAL VASCULAR: Varicose veins of the lower extremities. SKIN: There are chronic skin changes of the lower extremity. NEUROLOGIC: Today is nonfocal. PHYSICAL EXAMINATION: VITAL SIGNS: Height of 5 feet 9 inches, weight of 210 pounds. Blood pressure 130/60, heart rate of 70, respiratory rate of 18, temperature of 96 Fahrenheit. HEENT: Pupils are equal and reactive. NECK: No elevation of jugular venous pulsation. No bruit. CHEST: Clear to auscultation and percussion. HEART: PMI 5th left intercostal space. Normal first and second heart sound. ABDOMEN: Urostomy tube is noted. NEUROLOGIC: No gross motor or sensory deficits. LABORATORY DATA: As per chart. His lipid profile showed triglycerides of 130, cholesterol of 134, HDL of 43, LDL of 65. EKG showed normal sinus rhythm, lateral T-wave changes. CT head showing old lacunar right thalamic infarction. IMPRESSION: 1. Transient ischemic attack. 2. Coronary artery disease with stable anginal symptoms. 3. Abnormal EKG. 4. Hypertension. 5. Hypercholesterolemia. 6. Diabetes mellitus. RECOMMENDATION: Continuation of statin. Continuation of aspirin, Plavix, and atenolol. We will review his echocardiogram. Carotid Dopplers were ordered. The patient on telemetry, there are no arrhythmia. We will await neurological evaluation. From a cardiac point of view, medical therapy will be the recommended MD ANDREA Muhammad/MAHESHL /[id number]
[2019-05-15 16:26] LABS: BASOPHILS % 0.6 % (0.0-1.0); EOSINOPHILS # (AUTO) 0.2 (0.0-0.4); EOSINOPHILS % 3.8 % (0.0-6.0); HEMATOCRIT 35.8 % (38.2-49.6); HEMOGLOBIN 12.1 g/dL (14.0-18.0); LYMPHOCYTES # (AUTO) 0.8 (1.0-3.2); LYMPHOCYTES % 12.4 % (18.0-39.1); MEAN CORPUSCULAR HGB CONC 33.8 g/dL (31-35); MEAN CORPUSCULAR VOLUME 88.8 fL (81-99); MONOCYTES # (AUTO) 0.6 (0.2-0.8); MONOCYTES % 8.9 % (4.4-11.3); NEUTROPHILS # (AUTO) 4.7 (2.1-6.9); PLATELET COUNT 195 x10e3/uL (140-360); RED BLOOD COUNT 4.03 x10e6/uL (4.3-5.7); RED CELL DISTRIBUTION WIDTH 13.2 % (11.7-14.4)
[2019-05-15 16:41] LABS: ANION GAP 15.3 mmol/L (8-16); BLOOD UREA NITROGEN 18 mg/dL (7-26); BUN/CREATININE RATIO 21 (6-25); CALCIUM 9.3 mg/dL (8.4-10.2); CARBON DIOXIDE 22 mmol/L (22-29); CHLORIDE 105 mmol/L (98-107); CREATININE, SERUM 0.84 mg/dL (0.72-1.25); EST GLOMERULAR FILTRATION RATE > 60 ML/MIN (60-); GLUCOSE 211 mg/dL (74-118); POTASSIUM 4.3 mmol/L (3.5-5.1); SODIUM 138 mmol/L (136-145)
[2019-05-15] MEDS ORDERED: HYDRALAZINE HCL 20 MG/ML VIAL IV PRN (17:00)
--- NOTE | 2019-05-15 18:44 | NUR ---
walking rounds made with glass setter. patient aware of change, alert and oriented. call jason within reach and bed in lowest position with family at bedside.
[2019-05-15] MEDS: CEFTRIAXONE SOD 1 GM/NS 50 ML 50 ML IV SCH (20:18)
[2019-05-15] MEDS ORDERED: ATORVASTATIN 40 MG TAB PO SCH (21:00)
--- NOTE | 2019-05-15 23:46 | History and Physical ---
CHIEF COMPLAINT: Slurred speech and facial drooping. HISTORY OF PRESENT ILLNESS: This is a 78-year-old male with multiple comorbidities, of note, history of CAD in the past, hypertension, hyperlipidemia, and type 2 diabetes, who comes into the ED with complaints of facial droop and slurred speech. The patient reports that he noticed the facial droop and slurred speech yesterday afternoon. He initially was complaining of left shoulder pain and concerned for underlying substernal chest pain when this occurred. His daughter noticed this slurred speech and facial droop and brought him into the hospital for further evaluation. He had similar findings about a year ago and he was diagnosed with a TIA. In relation to his chest pain, he endorses that it is substernal, radiates to his left shoulder and arm. He has experienced this in the past before, thought it was heart related as well. Cardiology and Neurology were consulted respectively. The patient was seen and evaluated at bedside on the medical floor, currently he is doing well with no other issues at this time. PERTINENT REVIEW OF SYSTEMS: Pertinent positive: Slurred speech, facial drooping, chest pain, and left shoulder pain. Pertinent negative: Denies any palpitations, nausea, vomiting, diarrhea, dysuria, hematuria, frequency, urgency, lightheadedness, dizziness, abdominal pain, headaches, shortness of breath, cough, congestion, fever, or any other complaints. The rest of the 14-point review of systems have been reviewed with the patient and are negative. ALLERGIES: NO KNOWN DRUG ALLERGIES. HOME MEDICATIONS: Aspirin 81 mg daily, atenolol 25 mg daily, Lipitor 40 mg daily, Plavix 75 mg daily, iron tablets 325 mg daily, glimepiride 4 mg daily, metformin 1500 mg at bedtime time, Robaxin 750 mg 1 to 2 tabs p.o. t.i.d. p.r.n. for pain, Bactrim, and Valium 5 mg p.r.n. at bedtime for pain. PAST MEDICAL HISTORY: Type 2 diabetes, hypertension, hyperlipidemia, and history of CAD. PAST SURGICAL HISTORY: Reports none. FAMILY HISTORY: Hypertension and diabetes. SOCIAL HISTORY: No drugs, no alcohol. Does not smoke. Good social support. PHYSICAL EXAMINATION: VITAL SIGNS: Temperature is 97.8, pulse 70, respiratory rate is 20, blood pressure 134/63, and pulse ox 97% on room air. GENERAL: In no acute distress. Alert and oriented x3. Cooperative on examination. HEENT: Head is normocephalic and atraumatic. Eyes, pupils are equal, round, and reactive to light bilaterally. Extraocular movements are intact bilaterally. Throat, no evidence of erythema or exudates in the posterior pharynx. Has poor dentition. NECK: Supple. No JVD. Good range of motion. PULMONARY: Clear to auscultation bilaterally. No wheezing, rales, or rhonchi. No crackles appreciated. CARDIOVASCULAR: Positive S1 and S2. No murmurs, rubs, or gallops appreciated. ABDOMEN: Soft, nondistended, and nontender to palpation. Bowel sounds present. MUSCULOSKELETAL: Strength is 5/5 throughout. No evidence of muscle deficits on examination. No weakness appreciated. NEUROLOGICAL: Cranial nerves II through XII grossly intact. No evidence of any neurological deficits on exam. SKIN: Intact warm to touch. Good cap refill. PSYCHIATRIC: Normal affect and mood. EXTREMITIES: No edema. Good range of motion throughout. LABORATORY DATA: Lab findings show white count 6.3, hemoglobin 12, hematocrit 35, and platelets of 195. Chemistry is reviewed and stable. MICROBIOLOGY: None. IMAGING STUDIES: CT brain negative. Chest x-ray, no acute findings. Carotid ultrasound was found to be normal. IMPRESSION AND PLAN: 1. Probable transient ischemic attack, rule out cerebrovascular accident - aspirin, statin, PT, OT, Neurology consultation, carotid ultrasound negative, CT brain negative, MRI of the brain will be deferred to Neurology, the patient is back to normal baseline with no neurological deficits. 2. Chest pain, likely atypical in nature - likely musculoskeletal in nature, troponins are negative, aspirin and statin. Cardioprotective medications, Cardiology consulted. No further workup needed. 3. Type 2 diabetes - insulin sliding scale, Accu-Cheks from A1c, continue with oral antiglycemic medications. 4. Hypertension - continue with same home medications, p.r.n. hydralazine. 5. CT/OT evaluation. 6. Fluid, electrolytes, nutrition - heart healthy diet. 7. Prophylaxis, currently on Plavix and aspirin, encourage ambulation. 8. Disposition, inpatient, Neurology and Cardiology consulted. Once the patient has been cleared by the consultants, to be discharge home. The patient is under observation. MD PUSHPA Brooks/SONNY /[id number]
[2019-05-16] VITALS: BP 141/63
--- NOTE | 2019-05-16 00:11 | Consultation ---
DATE OF CONSULTATION: 05/15/2019 Neurology Consult. HISTORY OF PRESENT ILLNESS: Mr. Hurtado is a 78-year-old right-hand dominant man with past medical history significant for hypertension, hyperlipidemia, diabetes mellitus, coronary artery disease, and prior stroke, admitted to [facility] on May 14, 2019, with symptoms suspicious for a transient ischemic attack or stroke. On the evening of admission, the patient began to experience pain over the left side of his neck and the left shoulder. He endorses numbness over the left upper arm as well. According to the patient's daughter, who is at the bedside, Mr. Hurtado exhibited mildly slurred speech, drooling out of the left corner of his mouth, dizziness which is further described as lightheadedness, and diaphoresis. The patient's family members encouraged Mr. Hurtado to present to the emergency center for further evaluation of his symptoms. However, the patient initially declined. By the time Mr. Hurtado was convinced to seek medical attention and was brought to a [facility], his symptoms had resolved. The patient and his family estimate his symptoms persisted for approximately 1 hour. Documentation of the patient's neurological examination at the [facility] is not available for review. A CT of the brain without contrast was performed. This study did not reveal evidence of recent large territorial ischemia or hemorrhage. Mr. Hurtado was then transferred to [facility], where he was directly admitted to the observation unit for further evaluation and treatment of his symptoms. Mr. Hurtado endorses compliance with all prescription medications, including aspirin 81 mg by mouth daily and Plavix 75 mg by mouth daily. REVIEW OF SYSTEMS: Diaphoresis, dysarthria, numbness affecting the left upper arm, pain over the left side of the neck and left shoulder, dizziness which is further described as lightheadedness. PAST MEDICAL HISTORY: Hypertension, hyperlipidemia, diabetes mellitus, coronary artery disease, history of nephrolithiasis, prior stroke, bladder cancer (BCG and interferon treatment, urostomy placed), anemia, chronic pain, prior history of pulmonary emboli, and benign prostatic hypertrophy. PAST SURGICAL HISTORY: PCI, cardiac catheterization, urostomy, cholecystectomy, bilateral shoulder surgery, left leg vein stripping, appendectomy, left rotator cuff repair and revision, bilateral cataract removal. PAST HOSPITALIZATIONS: Surgeries/procedures as listed, multiple hospitalizations for different diagnoses. FAMILY MEDICAL HISTORY: The patient's paternal and maternal grandparents are . Their medical histories are unknown. The patient's father is of natural causes. His mother from pancreatic cancer. Mr. Hurtado has 11 brothers and three sisters. Multiple siblings have diabetes mellitus and/or coronary artery disease. The patient has one son and two daughters, all of whom are alive and healthy. SOCIAL HISTORY: Mr. Hurtado is . He is retired. The patient endorses a remote history of tobacco use, but quit smoking cigarettes approximately 20 plus years ago. There is no reported current or prior alcohol or recreational drug use. HOME MEDICATIONS: Reviewed. Please see the list of home medications available in the electronic medical record. HOSPITAL MEDICATIONS: Reviewed. Please see the list of hospital medications available in the electronic medical record. ALLERGIES: NO KNOWN DRUG ALLERGIES. NO KNOWN FOOD ALLERGIES. NO KNOWN ALLERGIES TO LATEX. NO KNOWN ALLERGIES TO IODINE OR OTHER CONTRAST MATERIALS. PHYSICAL EXAMINATION: VITAL SIGNS: Height 69 inches, weight 210 pounds, BMI 31.1 kg/m2. Blood pressure 134/63 mmHg, pulse 70 beats per minute, respiratory rate 20 breaths per minute, and oxygen saturation 97% on room air. GENERAL: The patient is awake and alert, does not appear distressed. Obese. HEENT: Normocephalic, atraumatic. Pupils are surgical. Moist mucous membranes. NECK: Supple. No appreciable thyromegaly. No appreciable carotid bruits. CARDIOVASCULAR: S1, S2, regular rate and rhythm. No murmurs, rubs, or gallops. RESPIRATORY: Clear to auscultation bilaterally. No wheezes, rhonchi, or rales. EXTREMITIES: The skin is warm and dry. No clubbing, cyanosis, or edema. The posterior tibial and dorsalis pedis pulses are 1+ and symmetric. SKIN: No rashes or lesions. NEUROLOGIC: Memory/Attention: The patient is awake and alert, oriented to person, place, time, and situation. Cranial Nerves: Cranial nerve I - not tested. Cranial nerve II, III, IV, and - pupils are surgical. Extraocular movements intact. No nystagmus. Cranial nerve V - sensation to light touch and pinprick is intact in the bilateral V1 through V3 distributions. Strength in the temporalis and masseter muscles are within normal limits. Cranial nerve VII - the face is symmetric as are all facial movements. Strength is within normal limits. Cranial nerve VIII - hearing is diminished to finger rub on the left. Cranial nerve IX, X - the soft palate elevates equally and symmetrically. Cranial nerve XI - normal strength of the bilateral sternocleidomastoid and trapezius muscles. Cranial nerve XII - the tongue protrudes midline and moves symmetrically from [id number]-eb-[id number]. Strength: Bulk is normal. Strength is 5/5 in the bilateral deltoids, biceps, triceps, wrist flexors and extensors, finger flexors and extensors, intrinsic hand muscle, hip flexors, knee flexors and extensors, ankle dorsiflexion and plantar flexion, and intrinsic foot muscles. Tone is normal. DTRs: Deep tendon reflexes are 1+ and symmetric at the triceps, biceps, brachioradialis, and patellas. Deep tendon reflexes are absent and symmetric at the Achilles. Plantar responses are flexor bilaterally. Sensation: Sensation is decreased to light touch and pinprick in a stocking distribution. Cerebellar: Jvazxz-zvxr-bcfath and heel-maria movements are intact without dysmetria or other impairment. Gait: Deferred. Speech: Spontaneous speech is normal without appreciable dysarthria or aphasia. Repetition is intact. Involuntary movements: None. Pronator Drift: None. LABORATORY DATA: The patient's basic metabolic panel is within normal limits with the exception of an elevated serum glucose. Cardiac enzymes are negative x2. The CBC with differential and platelets reveals white blood cell count of 6.37 with a normal differential. The hemoglobin and hematocrit are 12.1 and 35.8, respectively. The platelet count is 195. DIAGNOSTIC STUDIES: Electrocardiogram 05/14/2019: Normal sinus rhythm at 76 beats per minute. Chest x-ray 05/14/2019: No acute thoracic abnormality. CT of the brain without contrast 05/14/2019: On my review, there is no evidence of recent large territorial ischemia, hemorrhage, mass, or mass effect. A remote lacunar infarct is seen in the right thalamus. There is mild diffuse cerebral atrophy without compensatory dilatation of the ventricles, probably appropriate for the patient's age. Their findings compatible with [id number]-[id number] chronic small vessel ischemic disease. Echocardiogram 05/15/2019: Ejection fraction 60%. Trace mitral regurgitation, aortic insufficiency, and tricuspid regurgitation. Bilateral carotid artery ultrasound with Doppler on 05/15/2019: There is no atherosclerosis in either carotid artery system. Flow is antegrade in the bilateral vertebral arteries. ASSESSMENT AND PLAN: Mr. Hurtado is a 78-year-old man with multiple vascular risk factors admitted to [facility] on May 14, 2019, with symptoms suspicious for transient ischemic attack or stroke. The patient was found to have a probable urinary tract infection upon admission as well. Mr. Hurtado has undergone a thorough neurological examination with findings detailed above. His laboratory data and other diagnostic studies have been reviewed and are documented above. The patient's neuroimaging studies do not reveal recent large territorial ischemia or hemorrhage. In my opinion, the patient did not experience a transient ischemic attack. This opinion is based on the duration of the patient's symptoms. Generally, transient ischemic attacks lasts for a period of 5 to 10 minutes. If blood flow is limited to an area of the brain for longer period than this, a stroke is the result. It is my opinion Mr. Hurtado experienced recrudescence of prior deficits, probably secondary to an underlying urinary tract infection. Mr. Hurtado should be treated with intravenous or oral antibiotics for his urinary tract infection. Treatment of his vascular risk factor should be continued as appropriate. There are no other recommendations from the Neurology Service at this time. Thank you for this consultation. Please call again with any questions or concerns. TIME SPENT: 50 minutes. Jennifer Cantu MD CP/SONNY /[id number] TREY
[2019-05-16 04:00] VITALS: BP 145/67
[2019-05-16 05:17] LABS: BASOPHILS % 0.5 % (0.0-1.0); EOSINOPHILS # (AUTO) 0.2 (0.0-0.4); EOSINOPHILS % 3.3 % (0.0-6.0); HEMATOCRIT 35.3 % (38.2-49.6); HEMOGLOBIN 11.9 g/dL (14.0-18.0); LYMPHOCYTES # (AUTO) 0.8 (1.0-3.2); LYMPHOCYTES % 11.1 % (18.0-39.1); MEAN CORPUSCULAR HEMOGLOBIN 29.8 pg (28-32); MEAN CORPUSCULAR HGB CONC 33.7 g/dL (31-35); MEAN CORPUSCULAR VOLUME 88.5 fL (81-99); MONOCYTES # (AUTO) 0.6 (0.2-0.8); MONOCYTES % 8.7 % (4.4-11.3); NEUTROPHILS # (AUTO) 5.6 (2.1-6.9); NEUTROPHILS % 76.1 % (38.7-80.0); PLATELET COUNT 190 x10e3/uL (140-360); RED BLOOD COUNT 3.99 x10e6/uL (4.3-5.7); RED CELL DISTRIBUTION WIDTH 13.2 % (11.7-14.4)
[2019-05-16 05:45] LABS: BLOOD UREA NITROGEN 22 mg/dL (7-26); BUN/CREATININE RATIO 24 (6-25); CARBON DIOXIDE 23 mmol/L (22-29); CHLORIDE 104 mmol/L (98-107); EST GLOMERULAR FILTRATION RATE > 60 ML/MIN (60-); GLUCOSE 229 mg/dL (74-118); SODIUM 139 mmol/L (136-145)
--- NOTE | 2019-05-16 06:40 | NUR ---
rounded with deputy register of deeds nurse, patient resting comfortably. call jason within reach and bed in lowest position
[2019-05-16] MEDS ORDERED: GLIMEPIRIDE 2 MG TAB PO SCH (07:30)
[2019-05-16 08:20] VITALS: BP 152/70
[2019-05-16] MEDS: FAMOTIDINE 20 MG TAB PO SCH (08:20)
[2019-05-16] MEDS: ASPIRIN 81 MG ENTERIC COATED PO SCH (08:20)
[2019-05-16] MEDS: CLOPIDOGREL BISULFATE 75 MG TAB PO SCH (08:20)
[2019-05-16] MEDS: INSULIN LISPRO 100 UNIT/1 ML 3ML VIAL SQ SCH ×2 (08:20→11:40)
[2019-05-16 08:25] VITALS: BP 152/70
[2019-05-16] MEDS ORDERED: ASPIRIN 81 MG ENTERIC COATED PO SCH (09:00)
[2019-05-16] MEDS ORDERED: NON-FORMULARY MEDICATION (Glimepiride 4 MG) PO SCH (09:00)
[2019-05-16] MEDS ORDERED: NON-FORMULARY MEDICATION (Atenolol 25 MG) PO SCH (09:00)
[2019-05-16] MEDS ORDERED: CLOPIDOGREL BISULFATE 75 MG TAB PO SCH (09:00)
[2019-05-16] MEDS ORDERED: NON-FORMULARY MEDICATION (Atorvastatin Calcium 40 MG) PO SCH (09:00)
[2019-05-16] MEDS ORDERED: NON-FORMULARY MEDICATION (Aspirin (Ecotrin) 81 MG) PO SCH (09:00)
[2019-05-16] MEDS ORDERED: ATENOLOL 50 MG TAB PO SCH (09:00)
[2019-05-16] MEDS ORDERED: FERROUS SULFATE 325 MG TAB PO SCH (09:00)
[2019-05-16 12:00] VITALS: BP 116/59
--- NOTE | 2019-05-16 14:44 | NUR ---
patient alert and oriented. discharge instructions given at this time, patient and family verbalized understanding. IV discontinued, catheter in tact and pressure dressing applied. patient refused wheelchair assistance but will ambulate with assistance to personal auto for family to drive home.
--- NOTE | 2019-05-17 22:56 | Discharge Summary ---
FINAL DISCHARGE DIAGNOSES: 1. Transient ischemic attack. 2. Atypical chest pain. 3. Type 2 diabetes. 4. Hypertension. 5. Probable urinary tract infection, but likely contaminant as the patient has a chronic neobladder and the patient has no symptoms, no white count, no fever, discharged on antibiotics. CONSULTANTS: Cardiology and Neurology. PHYSICAL EXAMINATION: VITAL SIGNS: Temperature is 97.5, pulse 68, respiratory rate 21, blood pressure 116/59, pulse ox 98% on room air. LABORATORY FINDINGS: Show white count was 7.3, hemoglobin 11.9, hematocrit 35.2, platelets of 190. Chemistry; sodium 139, potassium 4, chloride 104, bicarb 23, anion gap of 16, BUN , creatinine 0.9, glucose is 229, calcium is 9. Troponins were negative. LDL was 65. CK was 81. Microbiology; urine culture showed E coli, Morganella morganii, and Enterococcus faecalis, all sensitive to ciprofloxacin, in which Cipro 500 mg twice daily has been ordered via pharmacy for 14 total days. IMAGING STUDIES: Chest x-ray negative. CT brain showed no acute findings. Carotid Doppler was within normal range. HOSPITAL COURSE: A 78-year-old male, who came into the ED after having some TIA-like symptoms, slurred speech, facial drooping, also underlying chest pain. In relation to his underlying TIA symptoms, Neurology was consulted. Carotid ultrasound was found to be negative. CT brain was found to be negative. Neurology did not want an MRI and was happy with no further workup. The patient will go home on aspirin and statin. In relation to his chest pain, it was atypical in nature. Cardiology was consulted. Troponins were negative. The patient was advised to follow up with Cardiology in the next 1 week for cardiac stress testing. The patient also has a neobladder from a prior surgical intervention and yesterday, ER nurse had grabbed urine from the actual bladder bag, not from the actual urine through the neobladder that he normally gets. The patient had no symptoms of dysuria, fevers, chills, leg pain, but I am not sure why they are getting away on this gentleman. On any rate, his urine culture was found to be positive for E coli, Morganella morganii, and Enterococcus faecalis, which I feel like this is likely a contaminant as the patient is afebrile, has no white count, has no symptoms. The patient feels the same stating that less likely to be urinary tract infection. On any rate, Cipro 500 mg p.o. b.i.d. for 14 days has been sent to his pharmacist via the phone with [facility]. I spoke with the daughter by phone, Lori, and she verbalized understanding and voiced understanding and had no other questions. I told her to go ahead and forklift picker the ciprofloxacin and also discussed this with the pharmacist at [facility]. Prescription has been ordered. On the day of discharge, vital signs were stable, labs reviewed and stable. The patient seen and evaluated, examined thoroughly on the day of discharge. No other complaints. The patient verbalized understanding and agrees with plan of care to follow up accordingly as an outpatient with the primary care physician in 1 week and sharepoint developer in 1 week and neurologist in 1 to 2 weeks' time. MEDICATIONS: See med reconciliation form. DISPOSITION: Home. CONDITION: Stable. DIET: Heart healthy. In the event of any worsening symptoms, the patient was advised to come back to the ED for further evaluation. Discharge summary took greater than 35 minutes. MD PUSHPA Brooks/SONNY /[id number]
== END 2019-05-16 14:45 | disposition home or self-care (01) ==
LOC: FSED 18:19 → ERHOLD 21:26 → IMCU 21:58
PROVIDERS: ADMIT Internal Medicine; ATTEND Internal Medicine
DX: R07.89 Other chest pain (principal); R29.810 Facial weakness; R47.81 Slurred speech; G44.1 Vascular headache, not elsewhere classified; I10 Essential (primary) hypertension; I25.118 Atherosclerotic heart disease of native coronary artery with other forms of angina pectoris; E11.9 Type 2 diabetes mellitus without complications; T83.511A Infection and inflammatory reaction due to indwelling urethral catheter, initial encounter; D64.9 Anemia, unspecified; Z85.51 Personal history of malignant neoplasm of bladder; E78.5 Hyperlipidemia, unspecified; Z95.5 Presence of coronary angioplasty implant and graft; Z86.73 Personal history of transient ischemic attack (TIA), and cerebral infarction without residual deficits; Z90.49 Acquired absence of other specified parts of digestive tract; E78.00 Pure hypercholesterolemia, unspecified; R94.31 Abnormal electrocardiogram [ECG] [EKG]; Z93.6 Other artificial openings of urinary tract status; Z79.82 Long term (current) use of aspirin; Z79.84 Long term (current) use of oral hypoglycemic drugs
CPT/HCPCS: 36415 ×2; 70450; 71046; 80048 ×3; 80061; 80076; 81003; 82550; 82553 ×2; 82948 ×2; 84484 ×2; 85025 ×3; 85610; 87086; 87186; 93005; 93306; 93880; 97116; 97139; 97161; 99284; G0378 ×3; J0696 ×2

== ENCOUNTER 2019-08-04 11:49 | Observation (INO) | payer MEDICARE, BC ==
[~2019-08-04] VITALS: Ht 167.6 cm; Wt 98.9 kg
[2019-08-04 12:25] LABS: BASOPHILS % 0.5 % (0.0-1.0); EOSINOPHILS # (AUTO) 0.2 (0.0-0.4); EOSINOPHILS % 2.8 % (0.0-6.0); HEMATOCRIT 38.4 % (38.2-49.6); HEMOGLOBIN 12.8 g/dL (14.0-18.0); LYMPHOCYTES # (AUTO) 1.2 (1.0-3.2); LYMPHOCYTES % 15.6 % (18.0-39.1); MEAN CORPUSCULAR HEMOGLOBIN 29.8 pg (28-32); MEAN CORPUSCULAR HGB CONC 33.3 g/dL (31-35); MEAN CORPUSCULAR VOLUME 89.5 fL (81-99); MONOCYTES # (AUTO) 0.6 (0.2-0.8); MONOCYTES % 8.3 % (4.4-11.3); NEUTROPHILS # (AUTO) 5.5 (2.1-6.9); NEUTROPHILS % 72.5 % (38.7-80.0); PLATELET COUNT 205 x10e3/uL (140-360); RED BLOOD COUNT 4.29 x10e6/uL (4.3-5.7); RED CELL DISTRIBUTION WIDTH 14.6 % (11.7-14.4)
[2019-08-04 12:28] LABS: BILIRUBIN,URINE NEGATIVE (NEGATIVE); CLARITY,URINE CLOUDY (CLEAR); COLOR,URINE YELLOW (YELLOW); KETONES,URINE NEGATIVE (NEGATIVE); LEUKOCYTE ESTERASE ,URINE SMALL (NEGATIVE); NITRITE,URINE NEGATIVE (NEGATIVE); PROTEIN,URINE DIPSTICK 2+ (NEGATIVE); URINE UROBILINOGEN 0.2 mg/dL (0.2 - 1)
[2019-08-04 12:36] LABS: INR 0.82; PROTHROMBIN TIME 11.8 seconds (11.9-14.5)
[2019-08-04 12:37] LABS: PARTIAL THROMBOPLASTIN TIME 17.3 seconds (23.8-35.5)
[2019-08-04 12:47] LABS: ALANINE AMINOTRANSFERASE 45 IU/L (0-55); ALBUMIN 3.7 g/dL (3.5-5.0); ALBUMIN/GLOBULIN RATIO 1.1 (0.8-2.0); ALKALINE PHOSPHATASE 62 IU/L (40-150); ANION GAP 16.5 mmol/L (8-16); BLOOD UREA NITROGEN 25 mg/dL (7-26); BUN/CREATININE RATIO 25 (6-25); CALCIUM 9.5 mg/dL (8.4-10.2); CARBON DIOXIDE 21 mmol/L (22-29); CHLORIDE 104 mmol/L (98-107); CREATINE KINASE 78 IU/L (30-200); CREATININE, SERUM 1.02 mg/dL (0.72-1.25); EST GLOMERULAR FILTRATION RATE > 60 ML/MIN (60-); GLUCOSE 205 mg/dL (74-118); MAGNESIUM 1.6 MG/DL (1.3-2.1); POTASSIUM 4.5 mmol/L (3.5-5.1); SODIUM 137 mmol/L (136-145)
[2019-08-04 12:50] LABS: BACTERIA,URINE RARE /HPF; EPITHELIAL CELLS,URINE FEW /LPF
--- NOTE | 2019-08-04 13:39 | Diagnostic Imaging Report ---
TECHNIQUE: CT scan of the chest WITH intravenous contrast. Dose modulation, iterative reconstruction, and/or weight-based adjustment of the mA/kV was utilized to reduce the radiation dose to as low as reasonably achievable. INDICATION: ^PE Protocol ^[id number] ^1300. COMPARISON: None. FINDINGS: LINES/TUBES: None. PULMONARY ARTERIES: Proximal to the bifurcation of the main pulmonary artery, the main pulmonary artery is 3 cm in diameter. No filling defects within the pulmonary arteries to suggest pulmonary embolus. LUNGS AND AIRWAYS: The low lung volumes and atelectasis are due to an expiratory phase. PLEURA: The pleural spaces are clear. HEART AND MEDIASTINUM: The visualized thyroid gland is normal. No significant mediastinal, hilar, or axillary lymphadenopathy. The left atrium is dilated. Moderate coronary arterial calcification. Trace gas in the right atrium and main pulmonary arteries likely due to contrast injection. Mild aortic atherosclerosis. SOFT TISSUES AND BONES: Hardware in the left humeral head. UPPER ABDOMEN: Prior cholecystectomy. Areas of calcification and nodularity along segment of liver and along the right retroperitoneum may be chronic gallstones. There is some fat stranding surrounding the first portion of the duodenum. IMPRESSION: 1. No pulmonary embolism. 2. No acute intrathoracic abnormality. 3. Nonspecific fat stranding surrounding the first portion of the duodenum could be due to duodenitis or recent surgery. 4. There is a nodularity and calcification along the right posterior peritoneum are most likely dropped gallstones from a prior cholecystectomy. Signed by: Ravindra Plaza JR, MD on 08/04/2019 1:36 PM
--- NOTE | 2019-08-04 14:16 | Diagnostic Imaging Report ---
EXAMINATION: CHEST SINGLE (PORTABLE) INDICATION: Chest pain COMPARISON: Chest radiograph of 05/14/2019 FINDINGS: LINES/TUBES:EKG leads overlie the chest. LUNGS:The lung volumes are low. There is perihilar fullness and indistinctness of the pulmonary vasculature. PLEURA:No pleural effusion or pneumothorax. MEDIASTINUM:Cardiomediastinal silhouette is stably enlarged. BONES/SOFT TISSUES:No acute osseous injury. Postoperative findings of rotator cuff repair at both shoulders. ABDOMEN:No free air under the diaphragm. IMPRESSION: Low lung volumes. Cardiomegaly and pulmonary edema. Signed by: Anaid Navas MD on 08/04/2019 2:13 PM
[2019-08-04] MEDS ORDERED: SODIUM CHLORIDE 0.9% 50ML 50 ML ONE (14:24)
[2019-08-04] MEDS ORDERED: IOPAMIDOL 370 MG/ML 200 ML INFUS..BTL INJ ONE (14:24)
[2019-08-04 15:15] VITALS: BP 133/96
[2019-08-04] MEDS ORDERED: ASPIRIN 81 MG CHEW TAB PO ONE (15:45)
[2019-08-04 16:56] VITALS: BP 133/96
[2019-08-04] MEDS ORDERED: FUROSEMIDE INJ 10 MG/ML 2 ML VIAL IV NR (17:30)
[2019-08-04] MEDS ORDERED: POTASSIUM CHLORIDE 20 MEQ TAB CR PO NR (18:00)
--- NOTE | 2019-08-04 19:19 | NUR ---
Report received and walking rounds complete. Pt resting in bed and in no apparent distress. All safety measures ensured and pt call jason near. Pt encouraged to use call jason for assistance. Pt at bedside.
[2019-08-04 20:00] VITALS: BP 121/92
[2019-08-04 20:18] VITALS: BP 121/92
[2019-08-04] MEDS: ATORVASTATIN 40 MG TAB PO SCH (20:48)
[2019-08-04] MEDS: METFORMIN HCL 500 MG TAB PO SCH (20:48)
[2019-08-04 21:16] LABS: CREATINE KINASE MB 1.5 ng/mL (0-5.0)
[2019-08-05] VITALS (7 sets, daily range): BP systolic 92–128; BP diastolic 62–80
--- NOTE | 2019-08-05 01:47 | History and Physical ---
CLINICAL HISTORY: This is a 78-year-old man known to me from previous evaluation, admitted via the emergency room because of shortness of breath particularly when he lies down. This patient is known to have coronary artery disease, status post coronary stenting dating back to 1998. He has had a total of 3 stents with the last one apparently done at [facility]] in 2002. He was admitted in 2015 because of slurring speech and was felt to have a TIA. Workup at that time included an echocardiogram, which showed mild aortic and mitral regurgitation with normal ejection fraction in the range of 60%. He had no significant carotid artery disease. Subsequently in May 2019, he was hospitalized with left-sided weakness and slurring speech. He was once again told that he had a TIA. He is maintained on aspirin 81 mg per day. PAST MEDICAL HISTORY: Remarkable for diabetes, hypertension, and hyperlipidemia. MEDICATIONS: Include aspirin 81 mg per day, atenolol 25 mg a day, atorvastatin 40 mg per day, clopidogrel 75 mg daily, glimepiride 4 mg p.o. t.i.d., and metformin 500 mg p.o. daily. Approximately two weeks prior to admission, he developed bronchitis and was treated with antibiotics including amoxicillin as well as prednisone. He felt improved and the dose was increased. Due to the prednisone, the patient developed a facial flushing and severely elevated blood sugar over 300. He continued to be symptomatic over the past two days. He has had worsening shortness of breath, particularly when he lies down. He went to see Dr. Mesa and was referred for hospitalization. In the emergency room, he was noted to have 30 second apnea when he was dozing off. Chest x-ray showed pulmonary edema. CT scan was negative for pulmonary edema. There was no evidence of pulmonary embolism. His room air oxygen was varied between 94% to 98%. When questioned why there was a discrepancy between the chest x-ray and the CT scan, the radiologist, reviewed it and decided that was slight degree of interstitial edema on a CT scan. The patient is a relatively large man and therefore it is possible that his size may have made his x-ray more difficult to interpret. PERSONAL AND SOCIAL HISTORY: Denies smoking or drinking. However, in the distant past, he smoked for 10 years. He has not smoked for at least 40 years. 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 FAMILY HISTORY: Father had myocardial infarction. Two brothers had myocardial infarction. Mother had stomach cancer. REVIEW OF SYSTEMS: Remarkable for previous episodic dizziness possibly due to vertigo. There is a history of mild anemia and bladder cancer. History of iron deficiency, pulmonary hypertension, 49 mmHg, history of past surgery include cholecystectomy and bladder cancer surgery. PHYSICAL EXAMINATION: GENERAL: He is a large man. VITAL SIGNS: Vital signs are otherwise stable. CARDIAC: Jugular veins were not well seen. S1 and S2 were regular at somewhat distant. LUNGS: Showed minimal crackles. ABDOMEN: Soft. Bowel sounds are present. EXTREMITIES: Showed no cyanosis, clubbing, edema. LABORATORY STUDIES: Electrocardiogram showed sinus rhythm, T-wave inversion in the inferior and anterior lateral leads. IMPRESSION: 1. Obstructive sleep apnea as witnessed in the emergency room, where the patient stopped breathing for approximately 30 seconds. When he is breathing normally, his oxygen saturation is 94% to 98%. 2. Mild interstitial pulmonary edema, possibly related to negative pressure from sleep apnea. 3. Rule out congestive heart failure, but previous echocardiogram in 2016 showed normal ejection fraction. 4. Mild aortic regurgitation. 5. Mild mitral regurgitation, 2016. 6. Diabetes, worsened by steroids. 7. Hyperlipidemia. 8. Coronary artery disease, status post 3 coronary stents between 1998 to 2002. 9. Persistent abnormal ECG with inferior anterior lateral T-wave inversion. 10. History of bladder cancer, status post resection with urostomy. 11. History of cholecystectomy. 12. Pulmonary hypertension, 49 mmHg in 2016. 13. History of iron deficiency anemia. 14. Urinary tract infection. RECOMMENDATIONS: Consider a small dose of Lasix trial. Repeat echocardiogram, sleep study on outpatient basis. Consider stress testing, which can possibly be done on outpatient basis as well. Inocencio Byrd MD MKJ/MODL /[id number] cc: MD Graciela Jones MD
[2019-08-05 05:40] LABS: ANION GAP 16.1 mmol/L (8-16); BLOOD UREA NITROGEN 25 mg/dL (7-26); BUN/CREATININE RATIO 29 (6-25); CALCIUM 9.5 mg/dL (8.4-10.2); CARBON DIOXIDE 24 mmol/L (22-29); CHLORIDE 103 mmol/L (98-107); CREATININE, SERUM 0.85 mg/dL (0.72-1.25); EST GLOMERULAR FILTRATION RATE > 60 ML/MIN (60-); GLUCOSE 126 mg/dL (74-118); POTASSIUM 4.1 mmol/L (3.5-5.1); SODIUM 139 mmol/L (136-145)
[2019-08-05 05:52] LABS: CREATINE KINASE MB 1.6 ng/mL (0-5.0)
[2019-08-05 06:07] LABS: FREE THYROXINE INDEX 2.3344 (1.4-3.8)
[2019-08-05] MEDS: METFORMIN HCL 500 MG TAB PO SCH ×2 (06:27→21:50)
--- NOTE | 2019-08-05 07:24 | NUR ---
Walking rounds complete and report given to day shift RN
[2019-08-05] MEDS: GLIMEPIRIDE 2 MG TAB PO SCH (08:20)
[2019-08-05] MEDS: CLOPIDOGREL BISULFATE 75 MG TAB PO SCH (08:47)
[2019-08-05] MEDS: ASPIRIN 81 MG ENTERIC COATED PO SCH (08:47)
[2019-08-05] MEDS: ATENOLOL 50 MG TAB PO SCH (11:35)
--- NOTE | 2019-08-05 11:44 | NUR ---
Patient's BS IS 420, Notified Dr Byrd, new orders received
[2019-08-05] MEDS ORDERED: INSULIN REGULAR, HUMAN 100 UNIT/1 ML 3ML VIAL SQ ONE (12:15)
[2019-08-05 14:52] LABS: CREATINE KINASE MB 1.8 ng/mL (0-5.0)
--- NOTE | 2019-08-05 14:56 | NUR ---
Dr Carty had rounds, new order to change Lanctus 15 units at night also insulin on sliding scale
--- NOTE | 2019-08-05 15:30 | NUR ---
Nutrition Screen Note RD Recommendation for Physician (08/05): -Continue current diet per MD. -Consider 1800 ADA diet if glucose levels trend high. Plan of Care: RD following, monitoring for tolerance and adequacy. Education provided. Nutrition reason for involvement: Diagnosis- CHF Primary Diagnose(s): CHF PMH: Remarkable for diabetes, hypertension, and hyperlipidemia. Ht:66 in Wt: 207 lb BMI: 33.4 kg/m2 IBW: [address] Assessment: (08/05) 78 YOM admitted for CHF with PMH listed above. Pt was seen eating his breakfast with at bedside. Pt reports that he has a good appetite and denied any N/V/C/D/chewing or swallowing issues as well as any food allergies. Pt was given educational handout regarding low Na diet. Pt or had no other questions or concerns. Chart reviewed. Labs and meds reviewed. Per MD note-consider lasix trial, repeat echo and consider stress test. A1c: 9.9 POC GM 89. Will continue to monitor. Current Diet: Cardiac Malnutrition Evaluation (08/05) The patient does not meet criteria for a specified degree of malnutrition at this time. Will re-evaluate at follow-up as appropriate. Diet Education Needs Assessment: Diet education indicated, pt accepted. Learner(s): pt Barriers: none Cultural/Language Modifications: none Readiness: acceptance Method: discussion, handout Topics: low Na Diet Understanding/Compliance: verbalized understanding, anticipate fair compliance Nutrition Care Level: low Signed: Jenn Dang RD, LD
[2019-08-05] MEDS: INSULIN LISPRO 100 UNIT/1 ML 3ML VIAL SQ SCH ×2 (16:42→21:50)
--- NOTE | 2019-08-05 18:21 | Consultation ---
DATE OF CONSULTATION: 08/05/2019 Endocrine Consultation This is a patient of Dr. Byrd. Thank you very much for referring this patient. HISTORY OF PRESENT ILLNESS: This is a 78-year-old gentleman, who is referred to me for evaluation of uncontrolled diabetes mellitus. The patient came to the hospital with history of shortness of breath, which is getting progressively worse. He was given a steroid shot also in the emergency room. His blood sugars started fluctuating quite significantly. The patient is a known diabetic for almost 15 to 20 years and takes a glimepiride at home. He also has history of hypertension, hyperlipidemia, coronary artery disease with stents in the past. The patient is on several medications at home including atenolol, metformin, and Lipitor for hyperlipidemia. PHYSICAL EXAMINATION: GENERAL: Today, the patient is alert, awake, little bit of pain. VITAL SIGNS: His heart rate is around 78 and blood pressure 140/80 mmHg. HEENT: Essentially unremarkable. Thyroid is palpable. Clinically, he is near euthyroid. CHEST: Bilateral vesicular breathing. He has bilateral bronchospasm and basilar rales. CARDIOVASCULAR: First and second heart sounds. There are no third or fourth heart sounds. There is ejection systolic murmur grade 2/6. 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 IMPRESSION: Diabetes mellitus type 2, uncontrolled with complications, precipitated by the IV steroids. Hypertension, hyperlipidemia, chest pain, congestive cardiac failure, and chronic obstructive pulmonary disease. PLAN: The plan at this time is to do a hemoglobin A1c thyroid function test. Monitor his blood sugars closely and we will start him on the Lantus and Humalog with each meal depending upon the blood sugars. Thanks for referring this patient. I will be following this patient with you. MD SULAIMAN Mckeon/SONNY /[id number]
--- NOTE | 2019-08-05 19:10 | NUR ---
Patient visited in room during nursing rounds. Patient alert and oriented x3. No distress or discomfort noted. at bedside. Urostomy noted on RLQ abdomen. Call jason within reach.
[2019-08-05] MEDS ORDERED: INSULIN GLARGINE 100 UNITS/ML VIAL SQ SCH ×2 (21:00)
[2019-08-05] MEDS: ATORVASTATIN 40 MG TAB PO SCH (21:50)
[2019-08-06] VITALS: BP 114/74
[2019-08-06 04:00] VITALS: BP 118/67
[2019-08-06] MEDS: METFORMIN HCL 500 MG TAB PO SCH (05:55)
[2019-08-06 08:00] VITALS: BP_SYST 118; BP_SYST 149; BP_DIAS 73; BP_DIAS 87
[2019-08-06] MEDS: GLIMEPIRIDE 2 MG TAB PO SCH (08:11)
[2019-08-06] MEDS: ASPIRIN 81 MG ENTERIC COATED PO SCH (08:12)
[2019-08-06] MEDS: CLOPIDOGREL BISULFATE 75 MG TAB PO SCH (08:12)
[2019-08-06] MEDS: INSULIN LISPRO 100 UNIT/1 ML 3ML VIAL SQ SCH ×2 (08:12→11:30)
[2019-08-06 08:26] VITALS: BP 149/87
[2019-08-06] MEDS: ATENOLOL 50 MG TAB PO SCH (09:20)
--- NOTE | 2019-08-06 10:24 | NUR ---
patient ambulating in room, not in any distress
--- NOTE | 2019-08-06 10:54 | NUR ---
EDUCATED ABOUT BLUE, SIGNED, FILED IN CHART, WITH COPY LEFT WITH FAMILY AT BEDSIDE.
[2019-08-06] MEDS ORDERED: Insulin Glargine SQ (11:13)
[2019-08-06 12:00] VITALS: BP 130/58
[2019-08-06] MEDS ORDERED: TRIMETHOPRIM/SULFAMETHOXAZOLE 160-800 MG TAB PO SCH (13:00)
[2019-08-06] MEDS ORDERED: BACTRIM DS TAB1 EACH PO (13:11)
--- NOTE | 2019-08-06 14:40 | NUR ---
Patient discharged home, Prescription of insulin and antibiotic given, Discharge teaching regarding Insulin given, patient Demonstrated it back. Handout ([place]) given regarding insulin administration. IV Canula removed with tip intact, no ss of infiltration noted, not in any distress or SOB, Daughter at bed side to take patient home, transported via wheelchair to [facility]
[2019-08-06] MEDS ORDERED: INSULIN GLARGINE 100 UNITS/ML VIAL SQ SCH (21:00)
--- NOTE | 2019-08-07 12:01 | Discharge Summary ---
CLINICAL HISTORY: This is a 78-year-old man, admitted via the emergency room because of shortness of breath with chest x-ray showing pulmonary edema, but CT scan did not show pulmonary edema. Please refer to my previous dictation concerning details of current illness, past medical history, personal and social history, family history, review of systems, physical examination, and initial laboratory studies. HOSPITAL COURSE: The patient was treated with intravenous Lasix with symptomatic improvement. He was noted to have sleep apnea, stop breathing for over 30 seconds while still in the emergency room, falling asleep for no reason. He was decided that the patient probably has negative pressure interstitial pulmonary edema related to the sleep apnea. He will require outpatient sleep study. It was noted during this hospitalization that his blood sugar was very elevated. He said he has already sees the [employer] operator helper, but has not required any insulin up to this point. It was felt that the high blood sugar may be exacerbated by his previous steroid usage. He is advised to avoid steroid if possible. In the meantime, Endocrinology consultation was obtained. Dr. Carty started him on insulin since his blood sugar exceeded 400. His discharge on Lantus 15 units insulin. His blood sugar runs in the high 100s and low 200s. His insulin will need to be titrated for the outpatient basis. He was taught how to use insulin and will follow with Dr. Mesa to titrate further outpatient basis. He will see me as needed in one week. DISCHARGE DIAGNOSES: 1. Obstructive sleep apnea with interstitial pulmonary edema caused by negative pressure related to obstruction. 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 I suspect this patient may need some amount of insulin on permanent bases, although temporarily may require a higher dose. 3. Obstructive sleep apnea, requiring outpatient workup and treatment. 4. Stable mild mitral regurgitation, dilated left atrium. 5. Stable aortic regurgitation. 6. Hyperlipidemia. 7. History of coronary artery disease, status post three previous stents between 1998 to 2002. 8. Persist abnormal ECG with inferolateral T-wave inversion without complaints of chest pain. 9. History of bladder cancer, status post resection with urostomy. 10. History of cholecystectomy. 11. History of mild pulmonary hypertension, 49 mmHg in 2016. 12. History of iron deficiency anemia. 13. Urinary tract infection, mild. Inocencio K Jeang, MD MKJ/MODL /[id number] cc: Graciela Mesa MD
== END 2019-08-06 14:21 | disposition home or self-care (01) ==
LOC: ER 11:49 → ERHOLD 16:17 → INTOOBSV 16:17 → MED/SURG2 16:43
PROVIDERS: ADMIT Internal Medicine Cardiovascular Disease; ATTEND Internal Medicine Cardiovascular Disease
DX: G47.33 Obstructive sleep apnea (adult) (pediatric) (principal); I50.9 Heart failure, unspecified; I49.1 Atrial premature depolarization; I25.10 Atherosclerotic heart disease of native coronary artery without angina pectoris; Z95.5 Presence of coronary angioplasty implant and graft; I11.0 Hypertensive heart disease with heart failure; E11.9 Type 2 diabetes mellitus without complications; E78.5 Hyperlipidemia, unspecified; Z79.82 Long term (current) use of aspirin; Z79.84 Long term (current) use of oral hypoglycemic drugs; Z87.891 Personal history of nicotine dependence; Z82.49 Family history of ischemic heart disease and other diseases of the circulatory system; Z80.0 Family history of malignant neoplasm of digestive organs; Z85.51 Personal history of malignant neoplasm of bladder; Z90.49 Acquired absence of other specified parts of digestive tract; I08.0 Rheumatic disorders of both mitral and aortic valves; N39.0 Urinary tract infection, site not specified; E11.65 Type 2 diabetes mellitus with hyperglycemia; T38.0X5A Adverse effect of glucocorticoids and synthetic analogues, initial encounter; Y92.230 Patient room in hospital as the place of occurrence of the external cause; J44.9 Chronic obstructive pulmonary disease, unspecified; J81.1 Chronic pulmonary edema
CPT/HCPCS: 36415 ×3; 71045; 71260; 80048; 80053; 81001; 82550 ×2; 82553 ×2; 82948 ×3; 83036; 83735; 83880; 84436; 84443; 84479; 84484 ×2; 85025; 85610; 85730; 93005 ×2; 93306; 99284; G0378 ×3; J1815; J1940; Q9967

== ENCOUNTER → 2022-08-30 | Day surgery (SDC) | payer MEDICARE, BC ==
[2022-08-24 15:26] LABS: BASOPHILS # (AUTO) 0.1 (0.0-0.1); BASOPHILS % 0.7 % (0.0-1.0); EOSINOPHILS # (AUTO) 0.2 (0.0-0.4); EOSINOPHILS % 2.6 % (0.0-6.0); HEMATOCRIT 44.9 % (38.2-49.6); HEMOGLOBIN 14.3 g/dL (14.0-18.0); LYMPHOCYTES # (AUTO) 1.3 (1.0-3.2); LYMPHOCYTES % 16.9 % (18.0-39.1); MEAN CORPUSCULAR HEMOGLOBIN 30.6 pg (28-32); MEAN CORPUSCULAR HGB CONC 31.8 g/dL (31-35); MEAN CORPUSCULAR VOLUME 96.1 fL (81-99); MONOCYTES # (AUTO) 0.7 (0.2-0.8); MONOCYTES % 8.9 % (4.4-11.3); NEUTROPHILS # (AUTO) 5.4 (2.1-6.9); NEUTROPHILS % 70.8 % (38.7-80.0); PLATELET COUNT 177 x10e3/uL (140-360); RED BLOOD COUNT 4.67 x10e6/uL (4.3-5.7); RED CELL DISTRIBUTION WIDTH 16.5 % (11.7-14.4)
[2022-08-24 15:43] LABS: ANION GAP 16.1 mmol/L (8-16); CALCIUM 8.7 mg/dL (8.4-10.2); CREATININE, SERUM 0.95 mg/dL (0.72-1.25); POTASSIUM 4.1 mmol/L (3.5-5.1)
[~2022-08-30] MED LIST changes: +ACETAMINOPHEN-1 EAC4 PO; +BACTRIM DS TAB1 EACH PO; +BUPIVACAINE HCL 0.5% INJ 30 ML VIAL INJ ONE; +DEXAMETHASONE SOD PHOS INJ 4 MG/ML SDV IV ONE; +Insulin Glargine SQ; +LIDOCAINE HCL 2% LOCAL INJ 5 ML SDV VIAL INJ ONE; +MUPIROCIN 2% OINT 22 GM TUBE ONE; +ONDANSETRON HCL INJ 2MG/ML 2ML 2 MG/ML VIAL IV ONE; +POVIDONE IODINE 0.05% 0.05 % ML PO ONE; +PROPOFOL IV EMULSION 10 MG/ML 20 ML VIAL IV ONE; +SEVOFLURANE INHAL SOLN 250 ML PEN BTL INH ONE; +WARFARIN SODIUM5 MG PO
[2022-08-30 08:29] LABS: INR 0.99
[2022-08-30 08:30] LABS: PARTIAL THROMBOPLASTIN TIME 30.2 seconds (23.8-35.5)
[2022-08-30 11:35] VITALS: BP 146/82
== END | disposition home or self-care (01) ==
LOC: OR 07:11
PROVIDERS: ATTEND Plastic Surgery
DX: M72.0 Palmar fascial fibromatosis [Dupuytren] (principal); G56.02 Carpal tunnel syndrome, left upper limb; M65.842 Other synovitis and tenosynovitis, left hand; C61 Malignant neoplasm of prostate; E11.9 Type 2 diabetes mellitus without complications; I10 Essential (primary) hypertension; I25.10 Atherosclerotic heart disease of native coronary artery without angina pectoris; I48.91 Unspecified atrial fibrillation; Z01.810 Encounter for preprocedural cardiovascular examination; Z01.812 Encounter for preprocedural laboratory examination; Z01.818 Encounter for other preprocedural examination; Z79.01 Long term (current) use of anticoagulants; Z79.84 Long term (current) use of oral hypoglycemic drugs; Z79.899 Other long term (current) drug therapy; Z95.5 Presence of coronary angioplasty implant and graft; Z86.73 Personal history of transient ischemic attack (TIA), and cerebral infarction without residual deficits
CPT/HCPCS: 25115; 26123; 36415 ×2; 71046; 80048; 82948; 85025; 85610; 85730; 88304; 93005; J0690; J1100; J2001; J2405; J2704; 88311

== ENCOUNTER 2022-10-04 | Outpatient (RCR) | payer MEDICARE, BC ==
[~2022-10-04] MED LIST changes: -BUPIVACAINE HCL 0.5% INJ 30 ML VIAL INJ ONE; -DEXAMETHASONE SOD PHOS INJ 4 MG/ML SDV IV ONE; -LIDOCAINE HCL 2% LOCAL INJ 5 ML SDV VIAL INJ ONE; -MUPIROCIN 2% OINT 22 GM TUBE ONE; -ONDANSETRON HCL INJ 2MG/ML 2ML 2 MG/ML VIAL IV ONE; -POVIDONE IODINE 0.05% 0.05 % ML PO ONE; -PROPOFOL IV EMULSION 10 MG/ML 20 ML VIAL IV ONE; -SEVOFLURANE INHAL SOLN 250 ML PEN BTL INH ONE
== END 2022-11-03 ==
LOC: OT
PROVIDERS: ATTEND Plastic Surgery
DX: M72.0 Palmar fascial fibromatosis [Dupuytren] (principal); M25.642 Stiffness of left hand, not elsewhere classified; R53.1 Weakness
CPT/HCPCS: 97010 ×8; 97035 ×8; 97110 ×5; 97140 ×7; 97165; 97763; L3919

== ENCOUNTER 2022-11-15 11:00 | Outpatient (RCR) | payer MEDICARE, BC | END 2022-12-04 | LOC: OT 11:00 | PROVIDERS: ATTEND Plastic Surgery | DX: M72.0 Palmar fascial fibromatosis [Dupuytren] (principal) ==

== ENCOUNTER 2022-12-10 12:58 | Outpatient (RCR) | payer MEDICARE, BC | END 2023-01-01 | LOC: OT 12:58 | PROVIDERS: ATTEND Plastic Surgery | DX: S82.62XA Displaced fracture of lateral malleolus of left fibula, initial encounter for closed fracture (principal) ==